=== PATIENT | female | born 1945 | race American Indian/Alaskan Native ===

== ENCOUNTER 2017-02-03 10:03 | Inpatient (IN) | payer MEDICARE, BC ==
[2017-02-03 10:03] VITALS: BMI 30.9
[2017-02-03] MEDS: Albuterol-Ipratrop 3 mg / 0.5 (3 ml) UD IH SCH ×4 (10:30→19:27)
--- NOTE | 2017-02-03 10:35 | ED PDOC ---
Arrival/HPI - General Chief Complaint: Shortness Of Breath Time Seen by Provider: 02/03/17 10:19 Historian: Patient - History of Present Illness Narrative History of Present Illness (Text): 02/03/17 10:30 A 71 year old female, whose past medical history includes asthma, brought into the emergency department by EMS for shortness of breath and wheezing. Patient states her symptoms feel similar to previous asthma exacerbations. She reports she was recently diagnosed with a sinus infection. Patient denies any fever, chills, nausea, vomiting, abdominal pain, chest pain or any other complaints. Time/Duration: Other (today) Symptom Course: Unchanged Quality: Other Context: Home Past Medical History - Provider Review Nursing Documentation Reviewed: Yes - Travel History If Yes, travel location?: [place] - Tetanus Immunization Tetanus Immunization: Unknown - Cardiac Hx Hypertension: Yes - Pulmonary Hx Asthma: Yes - Neurological Hx Neurological Disorder: No Hx Alzheimer's Disease: No HX Cerebrovascular Accident: No Hx Dementia: No Hx Dizziness: No Hx Meningitis: No Hx Parkinson's Disease: No Hx Seizures: No Hx Transient Ischemic Attacks (TIA): No - HEENT Hx HEENT Disorder: No Hx Blind: No Hx Cataracts: Yes (both eyes removed in 2009) Hx Deafness: No Hx Difficulty Chewing: No Hx Epistaxis: No Hx Glaucoma: No Hx Macular Degeneration: No - Renal Hx Renal Disorder: No Hx Dialysis: No Hx Kidney Stones: No Hx Neurogenic Bladder: No Hx Pyelonephritis: No Hx Renal Cancer: No Hx Renal Failure: No - Endocrine/Metabolic Hx Endocrine Disorders: No Hx Adrenal Cancer: No Hx Diabetes Insipidus: No Hx Diabetes Mellitus Type 1: No Hx Diabetes Mellitus Type 2: No Hx Hyperthyroidism: No Hx Hypothyroidism: No Hx Systemic Lupus Erythematosus: No - Hematological/Oncological Hx Blood Disorders: No Hx AIDS: No Hx Anemia: No Hx Cancer: No Hx Chemotherapy: No Hx Cirrhosis: No Hx Hemophilia: No Hx Hepatitis A: No Hx Hepatitis B: No Hx Hepatitis C: No Hx Metastasis: No Hx Shingles: No Hx Sickle Cell Disease: No Hx Unexplained Bleeding: No - Integumentary Hx Dermatological Disorder: No Hx Basal Cell Carcinoma: No Hx Eczema: No Hx Melanoma: No Hx Psoriasis: No Hx Squamous Cell Carcinoma: No - Musculoskeletal/Rheumatological Hx Musculoskeletal Disorders: No Hx Arthritis: Yes (back) Hx Back Pain: Yes (arthritic pain lower back) Hx Degenerative Joint Disease: Yes Hx Falls: No Hx Fractures: No Hx Gout: No Hx Herniated Disk: No Hx Myasthenia Gravis: No Hx Osteoarthritis: No Hx Osteomyelitis: No Hx Osteoporosis: No Hx Rhabdomyolysis: No Hx Spinal Stenosis: No Hx Unsteady Gait: No - Gastrointestinal Hx Gastrointestinal Disorders: No Hx Colostomy: No Hx Crohn's Disease: No Hx Diverticulitis: No Hx Gall Bladder Disease: No Hx Gastroesophageal Reflux: No Hx Gastrointestinal Ulcer: No Hx Ileostomy: No Hx Liver Failure: No Hx Pancreatitis: No HX Swallowing Problems: No - Genitourinary/Gynecological Hx Genitourinary Disorders: No Hx Hematuria: No Hx Incontinence: No Hx Prostate Problems: No Hx Sexually Transmitted Diseases: No Hx Urinary Tract Infection: No - Psychiatric Hx Depression: No Hx Emotional Abuse: No Hx Physical Abuse: No Hx Substance Use: No - Surgical History Hx Hysterectomy: Yes (2004) Other/Comment: sinsuses, bilat cataract - Anesthesia Hx Anesthesia: Yes Hx Anesthesia Reactions: No Hx Malignant Hyperthermia: No - Suicidal Assessment Feels Threatened In Home Enviroment: No Family/Social History - Physician Review Nursing Documentation Reviewed: Yes Family/Social History: No Known Family HX Smoking Status: Former Smoker Hx Alcohol Use: Yes Hx Substance Use: No Hx Substance Use Treatment: No Allergies/Home Meds Allergies/Adverse Reactions: Allergies Sulfa (Sulfonamide Antibiotics) Allergy (Verified 02/03/17 10:14) URTICARIA Home Medications: Home Meds Medication Instructions Recorded Confirmed Albuterol/Ipratropium [Duoneb 3 1 vial NEB Q6 03/31/13 05/02/15 mg/0.5 mg/3 ml] Amlodipine Besylate [Norvasc] 5 mg PO DAILY 03/31/13 05/02/15 Tiotropium [Spiriva] 1 vial NEB DAILY 03/31/13 05/02/15 Mometasone/Formoterol [Dulera] 1 ru IH BID 08/15/14 05/02/15 Physical Exam - Physical Exam Narrative Physical Exam (Text): - Review of Systems Constitutional: Normal. absent: Fatigue, Weight Change, Fevers Eyes: Normal ENT: denies sore throat, denies tristhmus Respiratory: (+) Shortness of breath, Wheezing absent: Cough, Sputum Cardiovascular: absent: Chest Pain, Palpitations, Syncope Gastrointestinal: Normal. absent: Abdominal Pain, Diarrhea, Nausea, Vomiting Genitourinary: Normal. absent: Dysuria, Frequency, Hematuria Musculoskeletal: Normal. absent: Arthralgias, Back Pain, Neck Pain Skin: no rashes, no erythema Neurological: absent: Focal Weakness Endocrine: Normal Hemo/Lymphatic: Normal Psychiatric: No suicidal or homicidal ideations Physical exam Patient appears age appropriate in no distress, speaking full sentences without difficulty - Systems Exam Head: Present: Atraumatic, Normocephalic Pupils: Present: PERRL Extroacular Muscles: Present: EOMI Conjunctiva: Present: Normal Mouth: Present: Moist Mucous Membranes Neck: Present: Normal Range of Motion. No: MIDLINE TENDERNESS, Paraspinal Tenderness Respiratory/Chest: Present: Good Air Exchange, Expiratory wheezing. No: Respiratory Distress, Accessory Muscle Use, Tachypneic Cardiovascular: Present: Regular Rate and Rhythm, Normal S1, S2, Peripheal Pulses Present. No: Murmurs Abdomen: Present: Normal Bowel Sounds. No: Tenderness, Distention, Peritoneal Signs, Rebound, Guarding Back: Present: Normal Inspection. No: Midline Tenderness, Paraspinal Tenderness Upper Extremity: Present: Normal Inspection. No: Cyanosis, Edema Lower Extremity: Present: Normal Inspection. No: Edema Neurological: Present: GCS=15, Speech Normal, cranial nerves II through XII fully intact with no cerebellar abnormality, neurosensory fully intact. No focal neurological deficits. Skin: Present: Warm, Dry, Normal Color. No: Rashes Lymphatic: Present: OX3, NI, NC Psychiatric: Present: Alert, Oriented x 3, Normal Insight, Normal Concentration Vital Signs Reviewed: Yes Vital Signs Temp Pulse Resp BP Pulse Ox 02/03/17 14:36 110 H 18 149/71 98 02/03/17 12:34 117 H 18 156/74 H 97 02/03/17 10:20 22 100 02/03/17 10:14 98.0 F 114 H 22 180/80 H 100 02/03/17 10:12 98.0 F 114 H 22 180/80 H 100 Temperature: Afebrile Blood Pressure: Hypertensive Pulse: Tachycardic Respiratory Rate: Normal Appearance: Positive for: Well-Appearing, Non-Toxic, Comfortable Pain Distress: None Mental Status: Positive for: Alert and Oriented X 3 Medical Decision Making ED Course and Treatment: 02/03/17 10:30 Impression: A 71 year old female with shortness of breath and wheezing. On physical exam, expiratory wheezing. Differential Diagnosis included but are not limited to: Asthma exacerbation vs. PNA Plan: -- Chest xray -- EKG -- Labs -- Duoneb and Solumedrol -- Blood culture -- Reassess and disposition Progress Notes: EKG shows sinus tachycardia at [address]-segment elevations, normal intervals. Interpreted by me. Report Date : 02/03/2017 11:04:42 Procedure: Chest xray Dictator : Dimitry Tellez MD IMPRESSION: No active disease. 02/03/17 14:22 On re-evaluation, patients lungs are clear to auscultation bilaterally. Patient states she feels better and is in no acute distress. 02/03/17 17:00 D-dimer positive, CT angiogram ordered Complaint Inspector : Aakash Lloyd MD PROCEDURE: CT Chest with contrast (Pulmonary Angiogram) IMPRESSION: Limited examination. Cannot exclude segmental/subsegmental pulmonary embolus on the basis of this examination. No large central embolus identified. No pulmonary infiltrate or pleural effusion. Additional findings as above. Patient continues to be tachycardic at rest She denies any chest discomfort, pleuritic chest discomfort, shortness of breath , dyspnea exertion. Will administer Lovenox and admit for further workup for possible PE and resting tachycardia 02/03/17 17:[address] Oconnor 02/03/17 17:[address] Oconnor in detail, plan to admit to remote/tele for further w/u pt aware of and agrees with plan - Lab Interpretations Lab Results: 02/03/17 10:38 02/03/17 10:38 Lab Results 02/03/17 11:00: PT 10.5, INR 0.97, APTT 23.9 02/03/17 10:38: Free T4 0.94, TSH 3rd Generation 1.43 02/03/17 10:38: D-Dimer, Quantitative 1.00 H 02/03/17 10:38: Sodium 143, Potassium 3.6, Chloride 103, Carbon Dioxide 28, Anion Gap 16, BUN 15, Creatinine 0.7, Est GFR ( Amer) > 60, Est GFR (Non- Af Amer) > 60, Random Glucose 153 H, Calcium 9.5, Total Bilirubin 0.4, AST 31, ALT 34, Alkaline Phosphatase 115, Lactate Dehydrogenase 521, Total Creatine Kinase 116, Troponin I < 0.01, NT-Pro-B Natriuret Pep 71.6, Total Protein 8.4 H , Albumin 4.7, Globulin 3.6, Albumin/Globulin Ratio 1.3 02/03/17 10:38: WBC 10.1 D, RBC 5.96, Hgb 13.0, Hct 40.5, MCV 68.0 L, MCH 21.8 L, MCHC 32.1, RDW 16.4 H, Plt Count 310, MPV 9.6, Gran % 70.7 H, Lymph % (Auto) 24.4, Dundy % (Auto) 4.8, Eos % (Auto) 0.0 L, Baso % (Auto) 0.1, Gran # 7.15 H, Lymph # 2.5, Dundy # 0.5, Eos # 0.0, Baso # 0.01 I have reviewed the lab results: Yes - RAD Interpretation Radiology Orders: 02/03/17 10:20 CHEST PORTABLE [RAD] Stat 02/03/17 15:34 ANGIO CHEST PE PROTOCOL [CT] Stat - Medication Orders Current Medication Orders: Discontinued Medications Albuterol/Ipratropium (Duoneb 3 Mg/0.5 Mg (3 Ml) Ud) 3 ml IH Q15M CATHY Stop: 02/03/17 11:01 Last Admin: 02/03/17 11:17 Dose: 3 ml Enoxaparin Sodium (Lovenox) 80 mg SC STAT STA PRN Reason: Protocol Stop: 02/03/17 17:29 Famotidine (Pepcid 20mg/50ml Premix) 20 mg in 50 mls @ 100 mls/hr IV STAT STA Stop: 02/03/17 11:10 Last Admin: 02/03/17 11:17 Dose: 100 mls/hr eMAR Start Stop Document 02/03/17 11:17 MR (Rec: 02/03/17 11:17 MR [id number]) Intravenous Solution Start Date 02/03/17 Start Time 11:17 End Date 02/03/17 End time 11:47 Total Infusion Time 30 Methylprednisolone (Solu-Medrol) 125 mg IVP STAT STA Stop: 02/03/17 10:20 Last Admin: 02/03/17 10:41 Dose: 125 mg IVP Administration Document 02/03/17 10:41 MR (Rec: 02/03/17 10:41 MR [id number]) Charges for Administration # of IVP Administrations 1 Ondansetron HCl (Zofran Inj) 4 mg IVP STAT STA Stop: 02/03/17 10:42 Last Admin: 02/03/17 10:46 Dose: 4 mg IVP Administration Document 02/03/17 10:46 MR (Rec: 02/03/17 10:46 MR [id number]) Charges for Administration # of IVP Administrations 1 - Scribe Statement The provider has reviewed the documentation as recorded by the Paulie Flores Provider Scribe Attestation: All medical record entries made by the Scribe were at my direction and personally dictated by me. I have reviewed the chart and agree that the record accurately reflects my personal performance of the history, physical exam, medical decision making, and the department course for this patient. I have also personally directed, reviewed, and agree with the discharge instructions and disposition. Disposition/Present on Arrival - Present on Arrival Any Indicators Present on Arrival: No History of DVT/PE: No History of Uncontrolled Diabetes: No Urinary Catheter: No History of Decub. Ulcer: No History Surgical Site Infection Following: None - Disposition Have Diagnosis and Disposition been Completed?: Yes Diagnosis: Pulmonary emboli, Asthma exacerbation Disposition: HOSPITALIZED Disposition Time: 17:47 Patient Plan: Admission Condition: FAIR Referrals: Ana M Almendarez MD [Primary Care Provider] - Follow up with primary Forms: [employer] (Serbian)
[2017-02-03] MEDS ORDERED: Famotidine 20mg/50ml 20 MG/50 ML BAG IV STA (10:41)
[2017-02-03 10:43] LABS: BASO # 0.01 K/mm3 (0.0-2.0); BASO % 0.1 % (0.0-3.0); GRAN # 7.15 (1.4-6.5); GRAN % 70.7 % (50.0-68.0); HEMATOCRIT 40.5 % (36.0-48.0); LYMPH # 2.5 (1.2-3.4); LYMPH % 24.4 % (22.0-35.0); MEAN CORPUSCULAR HEMOGLOBIN 21.8 pg (25.0-35.0); MEAN CORPUSCULAR HGB CONC 32.1 g/dl (31.0-37.0); MEAN PLATELET VOLUME 9.6 fl (7.0-11.0); MONO # 0.5 (0.1-0.6); MONO % 4.8 % (1.0-6.0); RED CELL DISTRIBUTION WIDTH 16.4 % (11.5-14.5); WHITE BLOOD COUNT 10.1 10^3/ul (4.5-11.0)
[2017-02-03 10:55] LABS: ALB/GLOB RATIO 1.3 (1.1-1.8); ALKALINE PHOSPHATASE 115 U/L (38-126); ALT/SGPT 34 U/L (7-56); AST/SGOT 31 U/L (14-36); BILIRUBIN,TOTAL 0.4 mg/dL (0.2-1.3); BLOOD UREA NITROGEN 15 mg/dL (7-21); CALCIUM 9.5 mg/dL (8.4-10.5); CARBON DIOXIDE 28 mmol/L (21-33); CHLORIDE 103 mmol/L (98-107); GFR AFRICAN-AMERICAN > 60; GLUCOSE,RANDOM 153 mg/dL (70-110); POTASSIUM 3.6 mmol/L (3.6-5.0); SODIUM 143 mmol/L (132-148); TOTAL PROTEIN 8.4 g/dL (5.8-8.3)
[2017-02-03 11:06] LABS: TROPONIN I < 0.01 ng/mL
--- NOTE | 2017-02-03 11:06 | RAD ---
HISTORY: cough COMPARISON: 05/02/2015 FINDINGS: LUNGS: No active pulmonary disease. PLEURA: No significant pleural effusion identified, no pneumothorax apparent. CARDIOVASCULAR: Normal. OSSEOUS STRUCTURES: No significant abnormalities. VISUALIZED UPPER ABDOMEN: Normal. OTHER FINDINGS: None. IMPRESSION: No active disease.
[2017-02-03 11:15] LABS: INR 0.97 (0.93-1.08); PARTIAL THROMBOPLASTIN TIME 23.9 Seconds (23.7-30.8)
[2017-02-03 15:29] LABS: FREE T4 0.94 ng/dL (0.78-2.19)
[2017-02-03 15:44] LABS: THYROID STIMULATING HORMONE 1.43 mIU/mL (0.46-4.68)
[2017-02-03] MEDS ORDERED: Iohexol 350 MG/100 ML VIAL ONE (15:44)
[2017-02-03] MEDS ORDERED: Enoxaparin 80 mg Syringe SC STA (17:28)
[2017-02-03] MEDS ORDERED: Albuterol-Ipratrop 3 mg / 0.5 (3 ml) UD IH PRN (17:47)
--- NOTE | 2017-02-03 20:02 | CT ---
PROCEDURE: CT Chest with contrast (Pulmonary Angiogram) HISTORY: r/o PE COMPARISON: CT chest 09/03/2013 TECHNIQUE: Axial computed tomography images were obtained of the chest in the pulmonary arterial phase of enhancement. Coronal and sagittal reformatted images were created and reviewed. Intravenous contrast dose: 100 mL Omnipaque 350 Radiation dose: Total exam DLP = 620.89 mGy-cm. This CT exam was performed using one or more of the following dose reduction techniques: Automated exposure control, adjustment of the mA and/or kV according to patient size, and/or use of iterative reconstruction technique. FINDINGS: PULMONARY ARTERIES: Examination limited due to inadequate timing of the scan relative to the contrast bolus as well as extensive respiratory motion artifact. No large central pulmonary embolus is identified. Embolism can't be excluded to the level of lobar vessels. AORTA: No acute findings. No thoracic aortic aneurysm. LUNGS: Subsegmental atelectasis in the lateral segment of the right middle lobe. No pulmonary infiltrate. PLEURAL SPACES: Unremarkable. No effusion or pneuomothorax. HEART: Unremarkable. No cardiomegaly. No significant pericardial effusion. LYMPH NODES: Shotty subcentimeter mediastinal lymph nodes. No significant enlarged lymph nodes are identified. BONES, CHEST WALL: Incidental hemangioma of the T9 vertebral body. No fracture. OTHER FINDINGS: UnremarkableImages through the upper abdomen show several rounded fluid density masses in the visualized portion of the liver, the largest in the anterior right lobe measures 4.4 cm. Likely cyst. Recommend correlation with ultrasound on a nonemergent basis. . IMPRESSION: Limited examination. Cannot exclude segmental/subsegmental pulmonary embolus on the basis of this examination. No large central embolus identified. No pulmonary infiltrate or pleural effusion. Additional findings as above.
[2017-02-03] MEDS ORDERED: Pneumococcal 23-Valent Vaccine IM ONE (21:58)
--- NOTE | 2017-02-03 22:41 | CARD ---
APPROVED REPORT EKG Measurement Heart [id number] <Conclusion> Sinus tachycardia Nonspecific ST abnormality Abnormal ECG
[2017-02-04] MEDS: Albuterol-Ipratrop 3 mg / 0.5 (3 ml) UD IH SCH ×3 (08:10→20:29)
[2017-02-04] MEDS: Budesonide 0.5 mg/2 ml Inhal Susp UD IH SCH ×2 (08:11→20:29)
[2017-02-04] MEDS: MethylPREDNISolone 40 mg Vial IVP SCH ×2 (09:37→22:26)
[2017-02-04] MEDS: Fluticasone Nasal 50 mcg/Spray NS SCH (10:15)
--- NOTE | 2017-02-04 11:08 | CON ---
PULMONARY CONSULTATION DATE: 02/04/2017 REFERRING PHYSICIAN: Quan Oconnor MD REASON CONSULTATION: Asthma. HISTORY OF PRESENT ILLNESS: The patient is a 71-year-old female, with past medical history significant for asthma, recurrent bronchitis, and hypertension, who presents to [facility] with a 1-week history of worsening shortness of breath at rest, dyspnea on exertion, cough, and minimal sputum production. The patient denies chest pain, coughing up of blood, or chest pain - made worse with deep respirations. There is no history of temperatures, chills or infectious exposure. There is no history of night sweats, weight loss or appetite change prior to the above events. No history of calf pains. No history of syncope or diaphoresis. No history of recent travel or trauma. REVIEW OF SYSTEMS: The patient does complain of a runny nose and postnasal drip also over the past week. No nausea, vomiting, or diarrhea. No acute urinary symptoms. No new neurologic or musculoskeletal complaints. Rest of the review of systems negative. ALLERGIES: Sulfanomide ANTIBIOTICS. SOCIAL HISTORY: Positive for tobacco. Negative for alcohol. FAMILY HISTORY: No inheritable diseases. HOME MEDICATIONS: Include Norvasc, Spiriva, Xolair, and Dulera. PHYSICAL EXAMINATION: GENERAL: The patient appears comfortable this morning. She is not short of breath at rest. She is not using accessory muscles for breathing. VITAL SIGNS: Temperature is 98.0, pulse this morning is approximately 90, respirations 17, and blood pressure 144/76. Oxygen saturation on nasal canula is 100%. HEENT: Normocephalic and atraumatic. NECK: No JVD. CARDIOVASCULAR: Systolic ejection murmur at the lower left sternal border. No S3 or gallop. LUNGS: Decreased breath sounds at the bases. Minimal rhonchi. Minimal wheezing. EXTREMITIES: Positive for mild edema. No cyanosis. No clubbing. Calves are nontender to palpation. GASTROINTESTINAL: Abdomen is soft, nontender, and nondistended. Bowel sounds are positive. SKIN: No acute rash. NEUROLOGIC: Limited at the present time. PERTINENT LABORATORY DATA: CAT scan of the chest was done as an angiogram protocol. There is no pulmonary embolism seen. There is very minimal subsegmental atelectasis vs. scar noted in the lateral segment of the right middle lobe. There are no pulmonary infiltrates, masses, or nodules. There is no significant lymphadenopathy. CBC: White count 10.1, hemoglobin 13.0, hematocrit 40.5, and platelets of 310. Complete metabolic profile: Glucose 153 and total protein 8.4. Rest of the metabolic profile is within normal limits. IMPRESSION: 1. Acute bronchitis. 2. Asthma. 3. Acute rhinitis. 4. Hypertension. PLAN: The patient presents to [facility] with a 1-week history of increasing pulmonary symptoms. In addition, the patient also complains of a runny nose with postnasal drip also over the past week. I did review the CAT scan of the chest - done as an angiogram protocol. There is no pulmonary embolism seen. There are no acute or significant abnormalities seen. On physical exam, the patient is in mild bronchospasm. There is no significant alveolar-arterial gradient. Oxygen saturation on nasal cannula is 100%. I will continue the current nebulizer treatments. I will add low-dose intravenous steroids and inhaled steroids this morning. Lastly, given the upper respiratory complaints over the past week, I will also add nasal steroids this morning. There are no temperatures noted. There is no leukocytosis. The patient does feel better this morning, and is clinically improved. Additional pulmonary intervention will be based on the clinical status of the patient. I will discuss the above with Dr. Oconnor. Thank you very much for this pulmonary consultation. Lion Patel MD MTDD
--- NOTE | 2017-02-05 02:55 | HP ---
HISTORY OF PRESENT ILLNESS: This is a 71-year-old female who came into the hospital with complaints of shortness of breath. She says that she was having more difficulty breathing. She was wheezing. She states that she has had previous asthma exacerbations, so she came in for further evaluation. She had recently been diagnosed with sinus infection. She denies any nausea or vomiting. No dysuria or frequency, She states that breathing medications did help her. She has no headaches. No abdominal pain. No back pain. No dysuria or frequency. No nocturia. REVIEW OF SYSTEMS: All other review of symptoms are within normal limits except what was mentioned. ALLERGIES: SULFA. HOME MEDICATIONS: Amlodipine, tiotropium, and Dulera. SOCIAL HISTORY: She does have a history of smoking. She denies alcohol or drugs. FAMILY HISTORY: Noncontributory. PHYSICAL EXAMINATION: VITAL SIGNS: Temperature is 98.0, pulse of 114, blood pressure 180/80, respirations 22, and O2 saturation is 100%. Height is 5 feet 4 inches. Weight is 180 pounds. BMI is 30.9. GENERAL: The patient lying in bed, uncomfortable, and in no acute distress. HEENT: Atraumatic and normocephalic. Anicteric sclerae. Moist mucosa. Thatcher conjunctivae. No oral lesions. NECK: No JVD, anterior and posterior adenopathy, thyromegaly, or bruits. CARDIOVASCULAR: S1 and S2 regular. No murmur, rubs, or gallop. LUNGS: Good bilateral air entry and bilateral mild wheezing, no rales or rhonchi. ABDOMEN: Bowel sounds are positive. Soft, nontender and nondistended. No hepatosplenomegaly. No rebound and no guarding. EXTREMITIES: No cyanosis, clubbing, or edema. NEUROLOGIC: No facial asymmetry. Tongue is midline. No uvula deviation. Power is 5/5 upper extremity and lower extremity. Sensation intact in upper extremity and lower extremity. PSYCHIATRIC: She is awake, alert and oriented x3. No anxiety or depression. She has normal affect. GENITOURINARY: No CVA tenderness. VASCULAR: 2+ pulses in the carotid pulses and pedal pulses. SKIN: No erythema or nodules SPINE: Shows normal curvature. LABORATORY DATA: White count of 10.1 and hemoglobin of 13. The patient's d-dimer is 1. She has a creatinine of 0.7. AST and ALT is 31 and 34. Albumin is 4.7. TSH is 1.43. DIAGNOSTIC DATA: Her CT scan of the chest done that was reviewed is limited exam, there was no large central emboli that was identified. An EKG done shows sinus tachycardia of 120, nonspecific ST changes. Chest x ray shows no infiltrates. ASSESSMENT: 1. Acute asthma exacerbation. 2. Acute rhinitis. 3. Hypertension. PLAN: The patient is going to be admitted to the hospital. She has been given nebulizer treatments. She is going to continue with Flonase. She is on amlodipine for her hypertension. Her tachycardia has improved as her breathing has improved. She is on Solu-Medrol. She was given Zofran in the ER. She is on a heart-healthy diet. She clinically does not seem to have PE. Her tachycardia is improving with nebulizer treatments. She has no recent long trips. She is not on and oral contraceptives. We will continue to follow her closely. I appreciate Cardiology input. Quan Oconnor MD
[2017-02-05 08:27] VITALS: BP 154/87; PULSE 74; RESP 18; TEMP 97.8; O2SAT 99
[2017-02-05] MEDS: Fluticasone Nasal 50 mcg/Spray NS SCH (09:09)
[2017-02-05] MEDS: Albuterol-Ipratrop 3 mg / 0.5 (3 ml) UD IH SCH (09:38)
[2017-02-05] MEDS: Budesonide 0.5 mg/2 ml Inhal Susp UD IH SCH (09:39)
--- NOTE | 2017-02-05 09:42 | PN ---
DATE: 02/05/2017 SUBJECTIVE: The patient appears very comfortable this morning. She is not short of breath at rest. OBJECTIVE: VITAL SIGNS: Temperature is 98.0, pulse 88, respirations 18, blood pressure 124/68. Oxygen saturation on room air is 97%. HEENT: Normocephalic, atraumatic. NECK: No JVD. CARDIOVASCULAR: Systolic ejection murmur at the lower left sternal border. No S3 gallop. LUNGS: Improved breath sounds at the bases. Less rhonchi. Less wheezing. EXTREMITIES: Positive for mild edema. No cyanosis, no clubbing. Calves are nontender to palpation. GASTROINTESTINAL: Abdomen is soft, nontender and nondistended. Bowel sounds are positive. SKIN: No acute rash. NEUROLOGIC: Exam limited to present time. IMPRESSION: 1. Acute bronchitis. 2. Asthma. 3. Acute rhinitis. 4. Hypertension. PLAN: The patient appears much more comfortable this morning. She is not short of breath at rest. Her cough is much less. She states to feeling much better overall. On physical exam, her bronchospasm is significantly less. In addition, the oxygen saturation on room air is 97% to 98%. I will continue the current nebulizer treatments and decrease the intravenous steroids this morning. The patient remains on nasal steroids,as well as inhaled steroids. I did discuss the case with the night nurse at length. The night nurse stated that the patient is doing very well overall. I did instruct the patient and nurse, that the patient's activity should be increased today. Clinical status of the patient is significantly improved. I will discuss the above with Dr. Oconnor. Lion Patel MD GERI
[2017-02-05] MEDS ORDERED: MethylPREDNISolone 40 mg Vial IVP SCH (10:00)
--- NOTE | 2017-02-06 08:53 | DS ---
SUBJECTIVE: The patient has no complaints of any chest pain or shortness of breath. No headaches or dizziness. She says she is feeling better. Her breathing is better. She is able to ambulate. PHYSICAL EXAMINATION: VITAL SIGNS: Temperature is 98, pulse of 88, blood pressure is 124/68, and respirations are 20. GENERAL: The patient is lying in bed, flat, comfortable. HEENT: No oral lesion. Anicteric sclerae. Moist mucosa. NECK: No JVD, adenopathy, or thyromegaly. CARDIOVASCULAR: S1 and S2, regular. No murmurs, rubs, or gallops. LUNGS: Clear to auscultation bilaterally. No wheeze, rales, or rhonchi. ABDOMEN: Bowel sounds are positive, soft, nontender and nondistended. EXTREMITIES: No cyanosis, clubbing or edema. LABORATORY DATA: White count of 10.1 and hemoglobin . ASSESSMENT: 1. Acute chronic obstructive pulmonary disease exacerbation. 2. Hypertension. 3. Acute rhinitis. PLAN: The patient is on Flonase for her rhinitis. She says she is breathing better. She is on nebulizer treatment for her breathing. The patient is on steroids, it has been tapered. She is going to be discharged home to follow up as an outpatient with her primary care doctor Dr. Negron. She has no headaches or dizziness. No nausea. Condition is stable. Activities; increase as tolerated. Quan Oconnor MD
== END 2017-02-05 12:54 | disposition home or self-care (01) | DRG 192 ==
LOC: ED 10:03 → ERH 17:47 → 3RNO 18:49
PROVIDERS: ADMIT Internal Medicine Nephrology; ATTEND Internal Medicine Nephrology
DX: J44.1 Chronic obstructive pulmonary disease with (acute) exacerbation (principal); J44.0 Chronic obstructive pulmonary disease with (acute) lower respiratory infection; J20.9 Acute bronchitis, unspecified; I10 Essential (primary) hypertension; Z87.891 Personal history of nicotine dependence

== ENCOUNTER 2017-09-15 15:37 | Inpatient (IN) | payer MEDICARE, BC ==
[2017-09-15] MEDS ORDERED: Albuterol 0.083% Inhal Sol (2.5 mg/3 mL) UD INH STA (15:44)
[2017-09-15] MEDS ORDERED: cefTRIAXone 1 gm 1 GM/100 ML BAG IVPB STA (15:50)
[2017-09-15] MEDS ORDERED: Azithromycin 500MG/NS 250ml 500 MG/250 ML BAG IVPB STA (15:50)
[2017-09-15] MEDS ORDERED: Albuterol-Ipratrop 3 mg / 0.5 (3 ml) UD IH PRN (16:16)
--- NOTE | 2017-09-15 16:55 | RAD ---
HISTORY: Pneumonia COMPARISON: 06/16/2017 FINDINGS: LUNGS: No active pulmonary disease. PLEURA: No significant pleural effusion identified, no pneumothorax apparent. CARDIOVASCULAR: Cardiomegaly. No evidence of acute, significant cardiovascular disease. OSSEOUS STRUCTURES: No significant abnormalities. VISUALIZED UPPER ABDOMEN: Normal. OTHER FINDINGS: None. IMPRESSION: No active disease. No significant interval change compared to the prior examination(s).
--- NOTE | 2017-09-15 17:10 | ED PDOC ---
Arrival/HPI - General Chief Complaint: Shortness Of Breath Time Seen by Provider: 09/15/17 15:42 Historian: Patient - History of Present Illness Narrative History of Present Illness (Text): 09/15/17 17:11 A 72 year old female, whose past medical history includes asthma, not on Prednisone, presents to the emergency department complaining of cough, cold and congestion for the past 3-4 days. Patient reports to taking different inhalers. Patient relates these symptoms to be seasonal allergies. Reports she went to PMD office this morning, who recommended patient to be admitted to the emergency department for Pneumonia. PMD spoke with Dr. Oconnor, who will do the admission. Patient reports to going home and bringing herself to the emergency department. Patient denies any other complaints at this time. Time/Duration: < week Symptom Onset: Sudden Symptom Course: Unchanged Activities at Onset: Rest Context: Home Past Medical History - Provider Review Nursing Documentation Reviewed: Yes - Infectious Disease Hx of Infectious Diseases: None - Tetanus Immunization Tetanus Immunization: Unknown - Cardiac Hx Hypertension: Yes - Pulmonary Hx Respiratory Disorders: Yes (home nebulizer machine) Hx Asthma: Yes Hx Bronchitis: Yes Hx Chronic Obstructive Pulmonary Disease (COPD): Yes Hx Pneumonia: Yes Other/Comment: recent sinus infection - Neurological Hx Neurological Disorder: No - HEENT Hx HEENT Disorder: No Hx Cataracts: Yes (b/l cat sx 2009) - Renal Hx Renal Disorder: No - Endocrine/Metabolic Hx Endocrine Disorders: No - Hematological/Oncological Hx Blood Disorders: No - Integumentary Hx Dermatological Disorder: No - Musculoskeletal/Rheumatological Hx Musculoskeletal Disorders: No Hx Arthritis: Yes (back) Hx Back Pain: Yes (arthritic pain lower back) Hx Degenerative Joint Disease: Yes - Gastrointestinal Hx Gastrointestinal Disorders: No - Genitourinary/Gynecological Hx Genitourinary Disorders: No - Psychiatric Hx Psychophysiologic Disorder: No Hx Substance Use: No - Surgical History Hx Hysterectomy: Yes (2004) Other/Comment: sinus sx, bilat cataract, myomectomy x2 fibroid came back a third time pt decided to have hysterectomy in 2004, r knee arthoscopic and torn miniscus sx 08/2015 - Anesthesia Hx Anesthesia: Yes Hx Anesthesia Reactions: No Hx Malignant Hyperthermia: No - Suicidal Assessment Feels Threatened In Home Enviroment: No Family/Social History - Physician Review Nursing Documentation Reviewed: Yes Family/Social History: No Known Family HX Smoking Status: Former Smoker Hx Alcohol Use: No Hx Substance Use: No Hx Substance Use Treatment: No Allergies/Home Meds Allergies/Adverse Reactions: Allergies Sulfa (Sulfonamide Antibiotics) Allergy (Verified 09/15/17 15:47) URTICARIA Home Medications: Home Meds Medication Instructions Recorded Confirmed Tiotropium [Spiriva] 1 vial NEB DAILY 03/31/13 09/15/17 Mometasone/Formoterol [Dulera 200 1 ru IH BID 08/15/14 09/15/17 Mcg/5 Mcg Inhaler] amLODIPine [Norvasc] 5 mg PO DAILY 02/03/17 09/15/17 Review of Systems - Physician Review All systems were reviewed & negative as marked: Yes - Review of Systems ENT: Sinus Congestion Respiratory: Cough Physical Exam Vital Signs Reviewed: Yes Vital Signs Temp Pulse Resp BP Pulse Ox 09/15/17 17:00 99.2 F 110 H 19 140/65 99 09/15/17 15:46 100.2 F H 111 H 18 144/68 96 Temperature: Febrile Blood Pressure: Normal Pulse: Tachycardic Respiratory Rate: Normal Appearance: Positive for: Non-Toxic, Comfortable, Ill-Appearing Pain Distress: None Mental Status: Positive for: Alert and Oriented X 3 - Systems Exam Head: Present: Atraumatic, Normocephalic Pupils: Present: PERRL Extroacular Muscles: Present: EOMI Conjunctiva: Present: Normal Mouth: Present: Moist Mucous Membranes Neck: Present: Normal Range of Motion Respiratory/Chest: No: Clear to Auscultation, Respiratory Distress, Accessory Muscle Use Cardiovascular: Present: Regular Rate and Rhythm, Normal S1, S2. No: Murmurs Abdomen: No: Tenderness, Distention, Peritoneal Signs Back: Present: Normal Inspection Upper Extremity: Present: Normal Inspection. No: Cyanosis, Edema Lower Extremity: Present: Normal Inspection. No: Edema Neurological: Present: GCS=15, CN II-XII Intact, Speech Normal Skin: Present: Warm, Dry, Normal Color. No: Rashes Psychiatric: Present: Alert, Oriented x 3, Normal Insight, Normal Concentration Medical Decision Making ED Course and Treatment: 09/15/17 17:08 Impression: A 72 year old female with cough, cold and congestion. Differential Diagnosis included but are not limited to: flu, PNA. Plan: -- labs -- Chest X-ray -- Albuterol, Solumedrol, Rocephin, Zithromax -- Urinalysis -- Reassess and disposition Prior Visits: Notes and results from previous visits were reviewed. Patient was last seen in the emergency department on 02/03/17 for evaluation of shortness of breath and wheezing. Progress Notes: EKG: Ordered, reviewed, and independently interpreted the EKG. Rate : 112 BPM Rhythm : sinus tachycardia Interpretation : normal EKG 09/15/17 16:28 Chest X-ray Creator : Ezequiel Gonsalez MD FINDINGS: LUNGS: No active pulmonary disease. PLEURA: No significant pleural effusion identified, no pneumothorax apparent. CARDIOVASCULAR: Cardiomegaly. No evidence of acute, significant cardiovascular disease. OSSEOUS STRUCTURES: No significant abnormalities. VISUALIZED UPPER ABDOMEN: Normal. IMPRESSION: No active disease. No significant interval change compared to the prior examination(s). Chest X-ray shows left lower lobe pneumonia, as read by me. Spoke with Dr. Oconnor, who agrees and accepts patient to be admitted to [facility]. - Lab Interpretations Lab Results: 09/15/17 15:45 09/15/17 15:45 Lab Results 09/15/17 15:45: Influenza Typ A,B (EIA) Negative for flu a/b 09/15/17 15:45: Sodium 142, Chloride 103, Potassium 4.3, Carbon Dioxide 26, Anion Gap 17, BUN 8, Creatinine 0.7, Est GFR ( Amer) > 60, Est GFR (Non- Af Amer) > 60, Random Glucose 107, Calcium 9.7, Total Bilirubin 0.4, AST 30, ALT 36, Alkaline Phosphatase 94, Lactate Dehydrogenase 528, Total Creatine Kinase 100, Troponin I < 0.01, Total Protein 7.9, Albumin 4.5, Globulin 3.4, Albumin/Globulin Ratio 1.3 09/15/17 15:45: pO2 77 H, VBG pH 7.38, VBG pCO2 46.0, VBG HCO3 27.2, VBG Total CO2 28.6 H, VBG O2 Sat (Calc) 98.0 H, VBG Base Excess 1.5, VBG Potassium 4.4, Sodium 136.0, Chloride 103.0, Glucose 112 H, Lactate 1.6, FiO2 21.0, Venous Blood Potassium 4.4 05/18/18 15:45: PT 12.5, INR 1.09 H 09/15/17 15:45: WBC 10.1, RBC 5.29, Hgb 11.5 L, Hct 35.3 L, MCV 66.7 L, MCH 21.7 L, MCHC 32.6, RDW 16.4 H, Plt Count 292, MPV 10.5, Gran % 64.7, Lymph % ( Auto) 18.0 L, [place] % (Auto) 8.8 H, Eos % (Auto) 8.3 H, Baso % (Auto) 0.2, Gran # 6.52 H, Lymph # (Auto) 1.8, Vigo # (Auto) 0.9 H, Eos # (Auto) 0.8 H, Baso # ( Auto) 0.02 I have reviewed the lab results: Yes - RAD Interpretation Radiology Orders: 09/15/17 15:44 CHEST PORTABLE [RAD] Stat - EKG Interpretation Interpreted by ED Physician: Yes Type: 12 lead EKG - Medication Orders Current Medication Orders: Albuterol/Ipratropium (Duoneb 3 Mg/0.5 Mg (3 Ml) Ud) 3 ml IH [id number] [facility] Last Admin: 09/20/17 13:17 Dose: 3 ml Albuterol/Ipratropium (Duoneb 3 Mg/0.5 Mg (3 Ml) Ud) 3 ml IH Q2H PRN PRN Reason: Shortness of Breath Amlodipine Besylate (Norvasc) 5 mg PO DAILY [facility] Last Admin: 09/20/17 09:16 Dose: 5 mg MAR Pulse and Blood Pressure Document 09/20/17 09:16 EP (Rec: 09/20/17 09:18 EP [facility] [id number]) Pulse Pulse Rate (60-90) 100 Blood Pressure Blood Pressure (100/60-150/90) 179/88 Budesonide (Pulmicort Respules) 0.5 mg IH [id number] [facility] Last Admin: 09/20/17 07:32 Dose: 0.5 mg Cefpodoxime Proxetil (Vantin) 200 mg PO Q12 [facility] Stop: 09/21/17 21:46 Last Admin: 09/20/17 09:15 Dose: 200 mg Methylprednisolone (Solu-Medrol) 30 mg IVP Q12 [facility] Last Admin: 09/20/17 09:15 Dose: 30 mg IVP Administration Document 09/20/17 09:15 EP (Rec: 09/20/17 09:16 EP [facility] [id number]) Charges for Administration # of IVP Administrations 1 Promethazine HCl (Phenergan Syrup) 6.25 mg PO Q4H PRN PRN Reason: Cough Last Admin: 09/20/17 09:16 Dose: 6.25 mg Discontinued Medications Albuterol Sulfate (Albuterol 0.083% Inhal Barbara (2.5 Mg/3 Ml) Ud) 7.5 mg INH STAT STA Stop: 09/15/17 15:45 Last Admin: 09/15/17 17:15 Dose: 7.5 mg Albuterol/Ipratropium (Duoneb 3 Mg/0.5 Mg (3 Ml) Ud) 3 ml IH TIDRESP [facility] Last Admin: 09/17/17 19:21 Dose: 3 ml Albuterol/Ipratropium (Duoneb 3 Mg/0.5 Mg (3 Ml) Ud) 3 ml IH Q4 PRN PRN Reason: Shortness of Breath Stop: 09/16/17 04:01 Albuterol/Ipratropium (Duoneb 3 Mg/0.5 Mg (3 Ml) Ud) 3 ml IH Q4H PRN PRN Reason: Shortness of Breath Last Admin: 09/18/17 05:04 Dose: 3 ml Ceftriaxone Sodium (Rocephin 1 Gram Ivpb) 1 gm in 100 mls @ 200 mls/hr IVPB STAT STA PRN Reason: Protocol Stop: 09/15/17 16:19 Last Admin: 09/15/17 18:05 Dose: 200 mls/hr eMAR Start Stop Document 09/15/17 18:05 LA (Rec: 09/15/17 18:05 [id number]) Intravenous Solution Start Date 09/15/17 Start Time 18:05 End Date 09/15/17 End time 18:35 Total Infusion Time 30 Azithromycin (Zithromax 500mg In Ns) 500 mg in 250 mls @ 167 mls/hr IVPB STAT STA PRN Reason: Protocol Stop: 09/15/17 17:19 Last Admin: 09/15/17 18:17 Dose: 167 mls/hr eMAR Start Stop Document 09/15/17 18:17 LA (Rec: 09/15/17 18:18 LA [id number]) Intravenous Solution Start Date 09/15/17 Start Time 18:17 End Date 09/15/17 End time 19:47 Total Infusion Time 90 Ceftriaxone Sodium (Rocephin 1 Gram Ivpb) 1 gm in 100 mls @ 100 mls/hr IVPB DAILY [facility]ATHY PRN Reason: Protocol Last Admin: 09/19/17 09:26 Dose: 100 mls/hr eMAR Start Stop Document 09/19/17 09:26 EP (Rec: 09/19/17 09:27 EP [facility] [id number]) Intravenous Solution Start Date 09/19/17 Start Time 09:26 End Date 09/19/17 End time 10:26 Total Infusion Time 60 Methylprednisolone (Solu-Medrol) 125 mg IVP STAT STA Stop: 09/15/17 15:45 Last Admin: 09/15/17 17:12 Dose: 125 mg IVP Administration Document 09/15/17 17:12 LA (Rec: 09/15/17 17:12 LA [id number]) Charges for Administration # of IVP Administrations 1 Methylprednisolone (Solu-Medrol) 40 mg IVP Q12 [facility] Last Admin: 09/18/17 21:03 Dose: 40 mg IVP Administration Document 09/18/17 21:03 MB (Rec: 09/18/17 21:04 MB [facility] [id number]) Charges for Administration # of IVP Administrations 1 Pneumococcal Polyvalent Vaccine (Pneumovax 23 Vaccine) 0.5 ml IM .ONCE ONE Stop: 09/15/17 22:49 - Scribe Statement The provider has reviewed the documentation as recorded by the Paulie Hernández Provider Scribe Attestation: All medical record entries made by the Scribtaqueria were at my direction and personally dictated by me. I have reviewed the chart and agree that the record accurately reflects my personal performance of the history, physical exam, medical decision making, and the department course for this patient. I have also personally directed, reviewed, and agree with the discharge instructions and disposition. Disposition/Present on Arrival - Present on Arrival Any Indicators Present on Arrival: Yes History of DVT/PE: No History of Uncontrolled Diabetes: No Urinary Catheter: No History of Decub. Ulcer: No History Surgical Site Infection Following: None - Disposition Have Diagnosis and Disposition been Completed?: Yes Diagnosis: Bronchitis, Asthma exacerbation Disposition: HOSPITALIZED Disposition Time: 19:00 Patient Plan: Admission Patient Problems: Current Active Problems Problem Status Onset Asthma exacerbation Acute Bronchitis Acute Condition: FAIR
[2017-09-15] MEDS: Albuterol-Ipratrop 3 mg / 0.5 (3 ml) UD IH SCH (17:12)
[2017-09-15 18:03] LABS: PH,URINE 7.5 (4.7-8.0); URINE BILIRUBIN NEGATIVE (NEGATIVE); URINE BLOOD TRACE-INTACT (NEGATIVE); URINE GLUCOSE (UA) NEGATIVE (NEGATIVE); URINE LEUKOCYTE ESTERASE NEGATIVE Leu/uL (NEGATIVE); URINE PROTEIN NEGATIVE mg/dL (<30 mg/dL); URINE UROBILINOGEN 0.2 E.U./dL (<1 E.U./dL)
[2017-09-15 18:07] LABS: URINE APPEARANCE CLEAR (CLEAR); URINE COLOR YELLOW (YELLOW)
[2017-09-15 18:13] LABS: BASO # 0.02 K/mm3 (0.0-2.0); BASO % 0.2 % (0.0-3.0); EOS # 0.8 (0.0-0.7); EOS % 8.3 % (1.5-5.0); GRAN # 6.52 (1.4-6.5); GRAN % 64.7 % (50.0-68.0); HEMOGLOBIN 11.5 g/dL (12.0-16.0); LYMPH # 1.8 (1.2-3.4); MEAN CELL VOLUME 66.7 fl (80.0-105.0); MEAN CORPUSCULAR HEMOGLOBIN 21.7 pg (25.0-35.0); MEAN CORPUSCULAR HGB CONC 32.6 g/dl (31.0-37.0); MEAN PLATELET VOLUME 10.5 fl (7.0-11.0); MONO # 0.9 (0.1-0.6); MONO % 8.8 % (1.0-6.0); RBC 5.29 10^6/uL (3.5-6.1); RED CELL DISTRIBUTION WIDTH 16.4 % (11.5-14.5); WHITE BLOOD COUNT 10.1 10^3/ul (4.5-11.0)
[2017-09-15 18:15] LABS: VENOUS BLOOD GAS BASE EXCESS 1.5 mmol/L (0.0-2.0); VENOUS BLOOD GAS PO2 77 mm/Hg (30-55); VENOUS BLOOD PH 7.38 (7.32-7.43)
[2017-09-15 18:18] LABS: URINE EPITHELIAL CELLS 0 - 2 /hpf (0-5); URINE WBC 0 - 2 /hpf (0-6)
[2017-09-15 18:19] LABS: URINE BACTERIA FEW (NEG)
[2017-09-15 18:20] LABS: INR 1.09 (0.93-1.08); PROTHROMBIN TIME 12.5 SECONDS (9.4-12.5)
[2017-09-15 18:26] LABS: ALB/GLOB RATIO 1.3 (1.1-1.8); ALBUMIN 4.5 g/dL (3.0-4.8); ALT/SGPT 36 U/L (7-56); AST/SGOT 30 U/L (14-36); BLOOD UREA NITROGEN 8 mg/dL (7-21); CALCIUM 9.7 mg/dL (8.4-10.5); GFR AFRICAN-AMERICAN > 60; GFR NON-AFRICAN AMERICAN > 60
[2017-09-15 18:37] LABS: TROPONIN I < 0.01 ng/mL
--- NOTE | 2017-09-15 20:07 | CARD ---
APPROVED REPORT EKG Measurement Heart [id number] <Conclusion> Sinus tachycardia Otherwise normal ECG
[2017-09-15] MEDS ORDERED: Pneumococcal 23-Valent Vaccine IM ONE (22:48)
[2017-09-16] MEDS: Albuterol-Ipratrop 3 mg / 0.5 (3 ml) UD IH SCH ×3 (07:31→19:46)
[2017-09-16] MEDS: MethylPREDNISolone 40 mg Vial IVP SCH ×2 (10:21→21:31)
[2017-09-16] MEDS: cefTRIAXone 1 gm 1 GM/100 ML BAG IVPB SCH (11:37)
--- NOTE | 2017-09-16 15:59 | HP ---
DATE OF EXAM: 09/16/2017 CHIEF COMPLAINT AND HISTORY OF PRESENT ILLNESS: This is a 72-year-old female who is coming into the hospital because of shortness of breath. She has a history of asthma and she was seen by Dr. Negron, her primary care doctor. The patient says that she has been having worsening shortness of breath. She has been using her medications, but they have not been helping including her inhalers. She says she does feel better this morning after she was given nebulizer treatments and steroids in the ER. She has no fevers. She does have a cough, it is dry. She has no abdominal pain, no back pain, no dysuria or frequency, no nocturia. She has no headaches or dizziness. No chest pain. REVIEW OF SYSTEMS: All other review of symptoms are within normal limits except what was mentioned. ALLERGIES: SULFA. HOME MEDICATIONS: Spiriva, Dulera and Norvasc. SOCIAL HISTORY: She does have a history of smoking. She denies alcohol or drugs. FAMILY HISTORY: Noncontributory. PHYSICAL EXAMINATION VITAL SIGNS: Temperature is 98.5, pulse of 94, blood pressure is 122/65, respirations 19, O2 saturation 98%. GENERAL: The patient lying in bed, uncomfortable, and in no acute distress. HEENT: Atraumatic and normocephalic. Anicteric sclerae. Moist mucosa. [place] conjunctivae. No oral lesions. NECK: No JVD, anterior and posterior adenopathy, thyromegaly, or bruits. CARDIOVASCULAR: S1 and S2 regular. No murmur, rubs, or gallop. LUNGS: Good bilateral air entry. There is wheezing bilaterally. No rales or rhonchi. ABDOMEN: Bowel sounds are positive. Soft, nontender and nondistended. No hepatosplenomegaly. No rebound and no guarding EXTREMITIES: No cyanosis, clubbing, or edema. NEUROLOGIC: No facial asymmetry. Tongue is midline. No uvula deviation. Power is 5/5 upper extremity and lower extremity. Sensation intact in upper extremity and lower extremity. PSYCHIATRIC: She is awake, alert and oriented x3. No anxiety or depression. She has normal affect. GENITOURINARY: No CVA tenderness. VASCULAR: 2+ pulses in the carotid pulses and pedal pulses. SKIN: No erythema or nodules SPINE: Shows normal curvature. LABORATORY DATA: Labs have been reviewed. White count of 10.1, hemoglobin of 11.5. Chemistry shows a creatinine is 0.7. Influenza has been negative. Chest x-ray shows no active disease. EKG shows sinus tachycardia at 112, QTc is 442. ASSESSMENT: 1. Acute asthma exacerbation. 2. Hypertension. PLAN: The patient is going to be admitted to the hospital. She is going to be on nebulizer treatment. She has been given steroids. She does have improvement of her symptoms. She was given a dose of Rocephin, we will continue. She says she does feel better, but she continues to wheeze. She says she is able to ambulate, but does get short of breath when she ambulates. Quan Oconnor MD
[2017-09-16] MEDS: Promethazine 6.25 MG/5 ML CUP PO PRN (19:53)
[2017-09-17] MEDS: Promethazine 6.25 MG/5 ML CUP PO PRN ×3 (06:11→21:15)
[2017-09-17] MEDS: Albuterol-Ipratrop 3 mg / 0.5 (3 ml) UD IH PRN (06:11)
[2017-09-17] MEDS: Albuterol-Ipratrop 3 mg / 0.5 (3 ml) UD IH SCH ×3 (09:21→19:21)
[2017-09-17] MEDS: MethylPREDNISolone 40 mg Vial IVP SCH ×2 (10:11→21:14)
[2017-09-17] MEDS: cefTRIAXone 1 gm 1 GM/100 ML BAG IVPB SCH (10:12)
--- NOTE | 2017-09-17 12:51 | PN ---
DATE: 09/17/2017 SUBJECTIVE: The patient has no complaints of any chest pain. No shortness of breath. No headaches or dizziness. PHYSICAL EXAMINATION: VITAL SIGNS: Temperature is 98, pulse of 96, blood pressure is 102/52, respirations 20. GENERAL: The patient is lying in bed, flat, comfortable. HEENT: No oral lesion. Anicteric sclerae. Moist mucosa. NECK: No JVD, adenopathy, or thyromegaly. CARDIOVASCULAR: S1 and S2, regular. No murmurs, rubs, or gallops. LUNGS: Bilateral wheezing. No rales or rhonchi. ABDOMEN: Bowel sounds are positive, soft, nontender and nondistended. EXTREMITIES: No cyanosis, clubbing or edema. LABORATORY DATA: White count 10.1, hemoglobin 11.5. Creatinine Is 0.7. ASSESSMENT: 1. Acute asthma exacerbation. 2. Hypertension. PLAN: The patient is getting nebulizer treatment. She is on steroids. The patient is on promethazine for cough. She is on Rocephin for antibiotics. The patient is on oxygen therapy. She is on a heart-healthy diet. I will get pulmonary evaluation. She says she is feeling better from when she first came in. Quan Oconnor MD
[2017-09-18] MEDS: Albuterol-Ipratrop 3 mg / 0.5 (3 ml) UD IH PRN (05:04)
[2017-09-18] MEDS: Promethazine 6.25 MG/5 ML CUP PO PRN ×3 (05:04→19:24)
[2017-09-18 07:01] LABS: HEMOGLOBIN 11.3 g/dL (12.0-16.0); MEAN CELL VOLUME 66.8 fl (80.0-105.0); MEAN CORPUSCULAR HEMOGLOBIN 21.3 pg (25.0-35.0); MEAN CORPUSCULAR HGB CONC 31.9 g/dl (31.0-37.0); MEAN PLATELET VOLUME 9.7 fl (7.0-11.0); RBC 5.3 10^6/uL (3.5-6.1); RED CELL DISTRIBUTION WIDTH 16.7 % (11.5-14.5); WHITE BLOOD COUNT 16.8 10^3/ul (4.5-11.0)
[2017-09-18 07:54] LABS: ALB/GLOB RATIO 1.2 (1.1-1.8); ALT/SGPT 31 U/L (7-56); AST/SGOT 26 U/L (14-36); BLOOD UREA NITROGEN 16 mg/dL (7-21); CALCIUM 9.1 mg/dL (8.4-10.5); GFR AFRICAN-AMERICAN > 60; GFR NON-AFRICAN AMERICAN > 60
[2017-09-18] MEDS: Budesonide 0.5 mg/2 ml Inhal Susp UD IH SCH ×2 (08:25→19:50)
[2017-09-18] MEDS: Albuterol-Ipratrop 3 mg / 0.5 (3 ml) UD IH SCH ×3 (08:25→19:50)
[2017-09-18] MEDS: cefTRIAXone 1 gm 1 GM/100 ML BAG IVPB SCH (09:12)
[2017-09-18] MEDS: MethylPREDNISolone 40 mg Vial IVP SCH ×2 (09:12→21:03)
--- NOTE | 2017-09-18 12:25 | PN ---
DATE: 09/18/2017 SUBJECTIVE: The patient has shortness of breath with exertion. She says she is feeling better than when she came into the hospital. No headaches or dizziness. No nausea, no vomiting. PHYSICAL EXAMINATION: VITAL SIGNS: Temperature is 98.2, pulse is 97, blood pressure is 144/84, respirations . GENERAL: The patient is lying in bed, flat, comfortable. HEENT: No oral lesion. Anicteric sclerae. Moist mucosa. NECK: No JVD, adenopathy, or thyromegaly. CARDIOVASCULAR: S1 and S2, regular. No murmurs, rubs, or gallops. LUNGS: Clear to auscultation bilaterally. No wheeze, rales, or rhonchi. ABDOMEN: Bowel sounds are positive, soft, nontender and nondistended. EXTREMITIES: No cyanosis, clubbing or edema. LABORATORY DATA: White count of 16.8, hemoglobin 11.3. Creatinine is 0.7. ASSESSMENT: 1. Acute asthma exacerbation. 2. Hypertension. 3. Leukocytosis. PLAN: The patient is currently comfortable. Blood cultures and urine cultures have been negative. The patient's white count is elevated, most likely from the steroids. The patient had a chest x-ray on initial admission to the hospital and she did not have infiltrates. The patient is currently on nebulizer treatment. She is on amlodipine for hypertension. She is Rocephin for antibiotics. She is on steroids, Solu-Medrol twice a day. She is receiving oxygen. She is on a heart-healthy diet. Quan Oconnor MD
--- NOTE | 2017-09-18 13:20 | CON ---
DATE: 09/18/2017 PULMONARY CONSULTATION REFERRING PHYSICIAN: Dr. Quan Oconnor. REASON FOR CONSULTATION: Asthma. History is obtained via extensive discussion with the night nurse. I have also reviewed the chart at length, and discussed the case with the patient at length. HISTORY OF PRESENT ILLNESS: The patient is a 72-year-old female, with past medical history significant for asthma, hypertension who presented to [facility] - originally on 09/15/2017 - with a four-day history of worsening shortness of breath at rest, dyspnea on exertion, cough, and sputum production. There is no history of chest pain, coughing up of blood, or chest pain - made worse with deep respirations. There is no history of temperatures, chills or infectious exposure. There is no history of night sweats, weight loss or appetite change prior to the above events. No history of leg or calf pains. No history of syncope or diaphoresis. No history of recent travel or trauma. REVIEW OF SYSTEMS: No history of nausea, vomiting or diarrhea. No acute urinary symptoms. No new neurologic or musculoskeletal complaints. Rest of the review of systems is negative. ALLERGIES: SULFONAMIDES, ANTIBIOTICS. SOCIAL HISTORY: Negative for tobacco and negative for alcohol. FAMILY HISTORY: No inheritable diseases. HOME MEDICATIONS: Include Norvasc, Spiriva, Xolair, Dulera, DuoNeb. PHYSICAL EXAMINATION: GENERAL: The patient appears comfortable at rest. She is not short of breath. She is not using accessory muscles for breathing. VITAL SIGNS (last noted in the computer): Last temperature recorded is 97.9. Pulse this morning is approximately 88, respiratory rate 18/20, blood pressure 129/65. Oxygen saturation on room air is 94%-100%. HEENT: Normocephalic, atraumatic. No JVD. CARDIOVASCULAR: Systolic ejection murmur at the lower left sternal border. No S3 gallop. LUNGS: Decreased breath sounds at the bases. Mild rhonchi and wheezing bilaterally. EXTREMITIES: Mild edema. No cyanosis, no clubbing. Calves are nontender to palpation. GASTROINTESTINAL: Abdomen is soft, nontender and nondistended. Bowel sounds are positive. SKIN: No acute rash. NEUROLOGIC: Limited at the present time. PERTINENT LABORATORY DATA: Chest x-ray was done on 09/15/2017 and reviewed. There is no active disease noted. CBC: White count 10.1K, hemoglobin 11.5, hematocrit 35.3, platelets of 292,000. Complete metabolic profile: Glucose 188. Rest of the metabolic profile is within normal limits. IMPRESSION: 1. Acute bronchitis. 2. Asthma. 3. Hypertension. 4. Mild anemia. PLAN: I did discuss the case with the night nurse at length. I have also reviewed the chart at length and discussed case with the patient at length. The patient presented to [facility] - originally on 09/15/2017 - with a 4-day history of worsening pulmonary symptoms. I did review the chest x-ray as above. It shows no active disease. On physical exam, the patient remains in [id number] bronchospasm. However, there is no significant alveolar-arterial gradient. I will increase the DuoNeb treatments this morning, and add inhaled Pulmicort. I will continue with the current intravenous steroids for now. The patient also remains on antibiotic therapy. There are no temperatures noted. There is no leukocytosis. The patient does feel better and is clinically improved - compared to her initial status. Additional pulmonary intervention will be based on the clinical status of the patient. I will discuss the above with Dr. Oconnor this morning. Thank you very much for this pulmonary consultation. Lion Patel MD [facility]
[2017-09-19] MEDS: Albuterol-Ipratrop 3 mg / 0.5 (3 ml) UD IH SCH ×4 (02:01→20:11)
[2017-09-19 06:54] LABS: HEMOGLOBIN 11.6 g/dL (12.0-16.0); MEAN CELL VOLUME 66.4 fl (80.0-105.0); MEAN CORPUSCULAR HEMOGLOBIN 21.4 pg (25.0-35.0); MEAN CORPUSCULAR HGB CONC 32.2 g/dl (31.0-37.0); MEAN PLATELET VOLUME 9.8 fl (7.0-11.0); RBC 5.42 10^6/uL (3.5-6.1); RED CELL DISTRIBUTION WIDTH 16.5 % (11.5-14.5); WHITE BLOOD COUNT 13.7 10^3/ul (4.5-11.0)
[2017-09-19] MEDS: Budesonide 0.5 mg/2 ml Inhal Susp UD IH SCH ×2 (07:22→20:12)
--- NOTE | 2017-09-19 08:40 | PN ---
DATE: 09/19/2017 PULMONARY NOTE SUBJECTIVE: The patient appears comfortable this morning. She is not short of breath at rest. OBJECTIVE: VITAL SIGNS: Last temperature recorded is 97.9, pulse this morning 88, respiratory rate 16, blood pressure 143/74. Oxygen saturation on room air is 96%. HEENT: Normocephalic, atraumatic. No JVD. CARDIOVASCULAR: Systolic ejection murmur at the lower left sternal border. No S3 gallop. LUNGS: Improved breath sounds at the bases. Less rhonchi. Less wheezing. EXTREMITIES: Mild edema. No cyanosis, no clubbing. Calves are nontender to palpation. GI: Abdomen is soft, nontender and nondistended. Bowel sounds are positive. SKIN: No acute rash. NEUROLOGIC: Exam limited at the present time. IMPRESSION: 1. Acute bronchitis. 2. Asthma. 3. Hypertension. 4. Mild anemia. PLAN: The patient appears comfortable this morning. She is not short of breath at rest. She does state to feeling much better overall. On physical exam, her bronchospasm is definitely less. In addition, the oxygen saturation on room air is now 96%. I will continue with the current nebulizer treatments and inhaled steroids for now. However, I will decrease the intravenous steroids this morning. The patient remains on antibiotic therapy. There are no temperatures noted. The leukocytosis is decreased. The clinical status of the patient is significantly improved - compared to a few days ago. I will discuss the above with Dr. Oconnor. Lion Patel MD [facility]
[2017-09-19] MEDS: MethylPREDNISolone 40 mg Vial IVP SCH ×2 (09:26→21:13)
[2017-09-19] MEDS: cefTRIAXone 1 gm 1 GM/100 ML BAG IVPB SCH (09:26)
[2017-09-19] MEDS: Promethazine 6.25 MG/5 ML CUP PO PRN ×2 (09:32→21:12)
--- NOTE | 2017-09-19 23:50 | PN ---
DATE: 09/19/2017 SUBJECTIVE: The patient has no complaints of any chest pain, no shortness of breath. She says her breathing is better, but she still continues to wheeze. It is not as significant as it was before. She is able to ambulate better. PHYSICAL EXAMINATION: VITAL SIGNS: Temperature is 97.6, pulse of 66, blood pressure is 164/85, respirations 18. GENERAL: The patient is lying in bed, flat, comfortable. HEENT: No oral lesion. Anicteric sclerae. Moist mucosa. NECK: No JVD, adenopathy, or thyromegaly. CARDIOVASCULAR: S1 and S2, regular. No murmurs, rubs, or gallops. LUNGS: Clear to auscultation bilaterally. No wheeze, rales, or rhonchi. ABDOMEN: Bowel sounds are positive, soft, nontender and nondistended. EXTREMITIES: No cyanosis, clubbing or edema. LABORATORY DATA: White count of 13.7, hemoglobin of 11.6, creatinine 0.7. ASSESSMENT: 1. Acute asthma exacerbation. 2. Hypertension. 3. Leukocytosis. PLAN: The patient is currently on amlodipine for hypertension. She is on Pulmicort. She is on Solu-Medrol, it has been tapered. She is on Vantin for antibiotics. She is on nebulizer treatment. Her cultures have been negative. I did review the notes from Infectious Disease as well as Pulmonary. Quan Oconnor MD
[2017-09-20] MEDS: Albuterol-Ipratrop 3 mg / 0.5 (3 ml) UD IH SCH ×4 (03:12→21:07)
[2017-09-20] MEDS: Budesonide 0.5 mg/2 ml Inhal Susp UD IH SCH ×2 (07:32→21:07)
[2017-09-20] MEDS: MethylPREDNISolone 40 mg Vial IVP SCH ×2 (09:15→21:13)
[2017-09-20] MEDS: Cefpodoxime (Vantin) 200 mg Tab PO SCH ×2 (09:15→21:13)
[2017-09-20] MEDS: Promethazine 6.25 MG/5 ML CUP PO PRN ×2 (09:16→21:13)
--- NOTE | 2017-09-20 11:10 | PN ---
DATE: 09/20/2017 PULMONARY NOTE SUBJECTIVE: The patient appears comfortable this morning. She is not short of breath at rest. OBJECTIVE: VITAL SIGNS (last noted in the computer): Temperature is 97.6, pulse 66, respirations 18, blood pressure 164/85. Oxygen saturation on room air is 98%. HEENT: Normocephalic, atraumatic. No JVD. CARDIOVASCULAR: Systolic ejection murmur at the lower left sternal border. No S3 gallop. LUNGS: Improved breath sounds at the bases. Still with mild rhonchi and wheezing bilaterally. EXTREMITIES: Mild edema. No cyanosis, no clubbing. Calves are nontender to palpation. GI: Abdomen is soft, nontender and nondistended. Bowel sounds are positive. SKIN: No acute rash. NEUROLOGIC: Exam limited at the present time. IMPRESSION: 1. Acute bronchitis. 2. Asthma. 3. Hypertension. 4. Mild anemia. PLAN: The patient appears comfortable this morning. She is not short of breath at rest. She does state to feeling much better overall. On physical exam, she remains in mild bronchospasm - albeit less compared to her initial presentation. In addition, the alveolar-arterial gradient continues to resolve. Oxygen saturation on room air is now 98%. I will continue with the current nebulizer treatments and current intravenous steroids (decreased yesterday) for now. The patient remains on antibiotic therapy. There are no temperatures noted. Culture results are negative. Clinical status of the patient continues to slowly improve. The patient is reminded to be out of bed as much as possible. I will discuss the above with Dr. Oconnor. Lion Patel MD GERI
--- NOTE | 2017-09-20 21:26 | PN ---
DATE: 09/20/2017 SUBJECTIVE: The patient has no complaints of any chest pain. She says her shortness of breath is better, but she continues to wheeze. She has no headaches or dizziness. PHYSICAL EXAMINATION: VITAL SIGNS: Temperature is 98.3, pulse of 100, blood pressure is 144/64, respirations 20. GENERAL: The patient is lying in bed, flat, comfortable. HEENT: No oral lesion. Anicteric sclerae. Moist mucosa. NECK: No JVD, adenopathy, or thyromegaly. CARDIOVASCULAR: S1 and S2, regular. No murmurs, rubs, or gallops. LUNGS: Clear to auscultation bilaterally. No wheeze, rales, or rhonchi. ABDOMEN: Bowel sounds are positive, soft, nontender and nondistended. EXTREMITIES: No cyanosis, clubbing or edema. LABORATORY DATA: White count of 13.7, hemoglobin 11.6. Creatinine 0.7. ASSESSMENT: 1. Acute chronic obstructive pulmonary disease. 2. Hypertension. PLAN: The patient is currently on nebulizer treatment. She is going to continue with steroids. I did speak to Dr. Patel regarding the case. The patient is on Vantin for antibiotic. This will be continued. She is getting heart-healthy diet. Quan Oconnor MD
[2017-09-21] MEDS: Albuterol-Ipratrop 3 mg / 0.5 (3 ml) UD IH SCH ×4 (02:00→20:58)
[2017-09-21] MEDS: Budesonide 0.5 mg/2 ml Inhal Susp UD IH SCH ×2 (07:17→20:58)
--- NOTE | 2017-09-21 07:31 | PN ---
DATE: 09/21/2017 PULMONARY NOTE SUBJECTIVE: The patient appears comfortable at rest. She is not short of breath. PHYSICAL EXAMINATION VITAL SIGNS: (last noted in the computer): Temperature is 98.5, pulse 97, respirations 16, blood pressure 151/76. Oxygen saturation on room air is 98%. HEENT: Normocephalic, atraumatic. No JVD. CARDIOVASCULAR: Systolic ejection murmur at the lower left sternal border. No S3 gallop. LUNGS: Less rhonchi. Much less wheezing. EXTREMITIES: Mild edema. No cyanosis. No clubbing. Calves are nontender to palpation. GI: Abdomen is soft, nontender and nondistended. Bowel sounds are positive. SKIN: No acute rash. NEUROLOGIC: Limited at the present time. IMPRESSION: 1. Acute bronchitis. 2. Asthma. 3. Hypertension. 4. Mild anemia. PLAN: The patient appears comfortable this morning. She is not short of breath at rest. She does state to feeling much better overall. She does, however, remain mildly dyspneic on exertion. On physical exam, her bronchospasm continues to slowly resolve. In addition, there is no significant alveolar-arterial gradient. I will continue with the current nebulizer treatments and decrease the intravenous steroids this morning. The patient also remains on oral antibiotic therapy. There are no temperatures noted. The clinical status of the patient is significantly improved overall. The patient is reminded to be out of bed as much as possible. I will discuss the above with Dr. Oconnor. Lion Patel MD [facility]
[2017-09-21] MEDS: MethylPREDNISolone 40 mg Vial IVP SCH ×2 (09:53→22:34)
[2017-09-21] MEDS: Cefpodoxime (Vantin) 200 mg Tab PO SCH (09:54)
[2017-09-21 14:57] VITALS: RESP 20
--- NOTE | 2017-09-21 16:06 | PN ---
DATE: 09/21/2017 SUBJECTIVE: The patient has no chest pain. She says she does get short of breath, but it has been improving. She has no headaches or dizziness. PHYSICAL EXAMINATION: VITAL SIGNS: Temperature of 98.2, pulse of 70, blood pressure 139/61, respirations 16. GENERAL: The patient is lying in bed, flat, comfortable. HEENT: No oral lesion. Anicteric sclerae. Moist mucosa. NECK: No JVD, adenopathy, or thyromegaly. CARDIOVASCULAR: S1 and S2, regular. No murmurs, rubs, or gallops. LUNGS: Bilateral mild wheezing. No rales or rhonchi. Good air entry. ABDOMEN: Bowel sounds are positive, soft, nontender and nondistended. EXTREMITIES: No cyanosis, clubbing or edema. ASSESSMENT: 1. Acute asthma exacerbation. 2. Hypertension. PLAN: The patient is currently comfortable. She is on nebulizer treatments. She is receiving amlodipine for her hypertension. She is on Pulmicort. She is also on Solu-Medrol. She is on Vantin for her antibiotics. She is on a heart healthy diet. Quan Oconnor MD
[2017-09-21 23:11] VITALS: TEMP 98.2
[2017-09-21] MEDS: Albuterol-Ipratrop 3 mg / 0.5 (3 ml) UD IH PRN (23:34)
[2017-09-22] MEDS: Albuterol-Ipratrop 3 mg / 0.5 (3 ml) UD IH SCH ×2 (01:19→07:25)
[2017-09-22] MEDS: Albuterol-Ipratrop 3 mg / 0.5 (3 ml) UD IH PRN (04:58)
[2017-09-22] MEDS: Budesonide 0.5 mg/2 ml Inhal Susp UD IH SCH (07:25)
[2017-09-22 07:32] VITALS: PULSE 96; O2SAT 99
--- NOTE | 2017-09-22 08:25 | PN ---
DATE: 09/22/2017 PULMONARY NOTE SUBJECTIVE: The patient appears very comfortable this morning. She is not short of breath at rest. OBJECTIVE: VITAL SIGNS: Last temperature recorded is 98.2, pulse this morning is 88, respiratory rate 18, blood pressure 148/68. Oxygen saturation on room air is 95%. HEENT: Normocephalic, atraumatic. No JVD. CARDIOVASCULAR: Systolic ejection murmur at the lower left sternal border. No S3 gallop. LUNGS: Minimal/less rhonchi. No wheezing this morning. EXTREMITIES: Mild edema. No cyanosis, no clubbing. Calves are nontender to palpation. GI: Abdomen is soft, nontender and nondistended. Bowel sounds are positive. SKIN: No acute rash. NEUROLOGIC: Exam limited at the present time. IMPRESSION: 1. Acute bronchitis. 2. Asthma. 3. Hypertension. 4. Mild anemia. PLAN: The patient appears very comfortable this morning. She is not short of breath at rest. She does state to feeling much, much better overall. She also has much less dyspnea on exertion. On physical exam, her bronchospasm continues to resolve. In addition, the oxygen saturation on room air is 95%. I will continue the current nebulizer treatments and change to oral steroids this morning. The oral antibiotic therapy has been discontinued by Dr. Oconnor. There are no temperatures noted. The clinical status of the patient is significantly improved overall. The patient is asking to be discharged in the near future. I will discuss the above with Dr. Oconnor. Lion Patel MD MTDD
[2017-09-22 10:28] VITALS: BP 148/80
--- NOTE | 2017-09-22 14:17 | DS ---
HISTORY OF PRESENT ILLNESS: This is a 72-year-old female who had come to the hospital with an acute asthma exacerbation. She was given IV steroids, nebulizer treatments and had improvement in her symptoms. The patient was seen by Pulmonary and was being followed. The patient has no complaints of any headaches or dizziness. She says her breathing is better. She has no nausea, no vomiting, no dysuria. PHYSICAL EXAMINATION: VITAL SIGNS: Temperature is 98.2, pulse of 96, blood pressure is 148/81, respirations 20, O2 saturation 99%. GENERAL: The patient is lying in bed, flat, comfortable. HEENT: No oral lesion. Anicteric sclerae. Moist mucosa. NECK: No JVD, adenopathy, or thyromegaly. CARDIOVASCULAR: S1 and S2, regular. No murmurs, rubs, or gallops. LUNGS: Good bilateral air entry. Mild wheezing bilaterally. No rhonchi. ABDOMEN: Bowel sounds are positive. Soft, nontender and nondistended. EXTREMITIES: No cyanosis, clubbing or edema. ASSESSMENT: 1. Acute asthma exacerbation. 2. Hypertension. PLAN: The patient is currently on nebulizer treatment. She is going to go home with prednisone, Vantin. She is on oxygen therapy. She is going to follow up with the primary care doctor. CONDITION: Stable. ACTIVITIES: Increase as tolerated. Follow up with Dr. Negron in 1 to 2 weeks. Follow up with Dr. Patel in 1 to 2 weeks. Quan Oconnor MD
== END 2017-09-22 12:09 | disposition home or self-care (01) | DRG 202 ==
LOC: ED 15:37 → ERH 15:51 → 5RNO 19:15
PROVIDERS: ADMIT Internal Medicine Nephrology; ATTEND Internal Medicine Nephrology
DX: J45.901 Unspecified asthma with (acute) exacerbation (principal); J44.0 Chronic obstructive pulmonary disease with (acute) lower respiratory infection; J20.9 Acute bronchitis, unspecified; I10 Essential (primary) hypertension; D64.9 Anemia, unspecified; Z87.891 Personal history of nicotine dependence

== ENCOUNTER 2017-11-20 18:22 | Inpatient (IN) | payer MEDICARE, BC ==
[2017-11-20 18:48] VITALS: BMI 29.7
[2017-11-20] MEDS ORDERED: Sodium Chloride 0.9% 1,000 ML IV STA (18:50)
[2017-11-20] MEDS ORDERED: Morphine 4 mg/ml ISec IVP STA (18:50)
--- NOTE | 2017-11-20 18:59 | ED PDOC ---
Arrival/HPI - General Chief Complaint: Abdominal Pain Time Seen by Provider: 11/20/17 18:30 Historian: Patient - History of Present Illness Narrative History of Present Illness (Text): 11/20/17 18:54 72 year old female, whose past medical history includes asthma, who presents to the emergency department sent by Dr. Almendarez for rt flank pain that radiates to groin, for admission to Dr. Park. Dr. Almendarez states patient needs further evaluation for possible pyelonephritis or kidney stones. Patient denies any fever, chills, chest pain, shortness of breath, nausea, vomiting, diarrhea, neck pain, headache, dizziness, or any other complaints. Symptom Onset: Gradual Symptom Course: Unchanged Activities at Onset: Light Context: Home Past Medical History - Provider Review Nursing Documentation Reviewed: Yes - Infectious Disease Hx of Infectious Diseases: None - Tetanus Immunization Tetanus Immunization: Unknown - Reproductive Menopause: Yes - Cardiac Hx Hypertension: Yes - Pulmonary Hx Respiratory Disorders: Yes (home nebulizer machine) Hx Asthma: Yes Hx Bronchitis: Yes Hx Chronic Obstructive Pulmonary Disease (COPD): Yes Hx Pneumonia: Yes Other/Comment: recent sinus infection - Neurological Hx Neurological Disorder: No - HEENT Hx HEENT Disorder: No Hx Cataracts: Yes (b/l cat sx 2009) - Renal Hx Renal Disorder: No - Endocrine/Metabolic Hx Endocrine Disorders: No - Hematological/Oncological Hx Blood Disorders: No - Integumentary Hx Dermatological Disorder: No - Musculoskeletal/Rheumatological Hx Musculoskeletal Disorders: No Hx Arthritis: Yes (back) Hx Back Pain: Yes (arthritic pain lower back) Hx Degenerative Joint Disease: Yes - Gastrointestinal Hx Gastrointestinal Disorders: No - Genitourinary/Gynecological Hx Genitourinary Disorders: No - Psychiatric Hx Psychophysiologic Disorder: No Hx Substance Use: No - Surgical History Hx Hysterectomy: Yes (2004) Other/Comment: sinus sx, bilat cataract, myomectomy x2 fibroid came back a third time pt decided to have hysterectomy in 2004, r knee arthoscopic and torn miniscus sx 08/2015 - Anesthesia Hx Anesthesia: Yes Hx Anesthesia Reactions: No Hx Malignant Hyperthermia: No - Suicidal Assessment Feels Threatened In Home Enviroment: No Family/Social History - Physician Review Nursing Documentation Reviewed: Yes Family/Social History: Unknown Family HX Smoking Status: Former Smoker Hx Alcohol Use: No Hx Substance Use: No Hx Substance Use Treatment: No Allergies/Home Meds Allergies/Adverse Reactions: Allergies Sulfa (Sulfonamide Antibiotics) Allergy (Verified 09/15/17 15:47) URTICARIA Home Medications: Home Meds Medication Instructions Recorded Confirmed Tiotropium [Spiriva] 1 vial NEB DAILY 03/31/13 09/15/17 Mometasone/Formoterol [Dulera 200 1 ru IH BID 08/15/14 09/15/17 Mcg/5 Mcg Inhaler] amLODIPine [Norvasc] 5 mg PO DAILY 02/03/17 09/15/17 Review of Systems - Physician Review All systems were reviewed & negative as marked: Yes - Review of Systems Constitutional: Normal Eyes: Normal ENT: Normal Respiratory: Normal. absent: SOB, Cough Cardiovascular: Normal. absent: Chest Pain Gastrointestinal: Normal. absent: Abdominal Pain, Diarrhea, Nausea, Vomiting Genitourinary Female: Normal. absent: Dysuria, Frequency Musculoskeletal: Back Pain (right flank pain that radiates to groin). absent: Neck Pain Skin: Normal. absent: Rash Neurological: Normal. absent: Headache Endocrine: Normal Hemo/Lymphatic: Normal Psychiatric: Normal Physical Exam Vital Signs Reviewed: Yes Vital Signs Temp Pulse Resp BP Pulse Ox 11/20/17 20:26 100 H 18 147/56 L 97 11/20/17 18:47 99.2 F 95 H 20 162/70 H 95 Temperature: Afebrile Blood Pressure: Hypertensive Pulse: Tachycardic Respiratory Rate: Normal Appearance: Positive for: Well-Appearing, Non-Toxic, Comfortable Pain Distress: None Mental Status: Positive for: Alert and Oriented X 3 - Systems Exam Head: Present: Atraumatic, Normocephalic Pupils: Present: PERRL Extroacular Muscles: Present: EOMI Conjunctiva: Present: Normal Mouth: Present: Moist Mucous Membranes Neck: Present: Normal Range of Motion Respiratory/Chest: Present: Clear to Auscultation, Good Air Exchange. No: Respiratory Distress, Accessory Muscle Use Cardiovascular: Present: Regular Rate and Rhythm, Normal S1, S2. No: Murmurs Abdomen: No: Tenderness, Distention, Peritoneal Signs Back: Present: Other (Tenderness to rt flank) Upper Extremity: Present: Normal Inspection. No: Cyanosis, Edema Lower Extremity: Present: Normal Inspection. No: Edema Neurological: Present: GCS=15, CN II-XII Intact, Speech Normal Skin: Present: Warm, Dry, Normal Color. No: Rashes Psychiatric: Present: Alert, Oriented x 3, Normal Insight, Normal Concentration Medical Decision Making ED Course and Treatment: 11/20/17 19:05 Impression: 72 year old female presents to the emergency department sent by Dr. Almendarez for rt flank pain that radiates to the groin. Plan: -- VBG -- CT abd/pelvis -- Morphine -- Zofran -- Sodium Chloride -- Blood Culture -- Urine Culture -- Urinalysis -- Reassess and disposition Progress Notes: 11/20/17 21:19 CT abd/pelvis reviewed, shows: Limitations: Limited evaluation due to lack of any contrast. Lung bases: Atelectatic changes at the right lung base. ABDOMEN: Liver: Multiple cysts in the liver, one of the lesion has calcification in the inferior aspect. It measures 4.8 cm. Gallbladder and bile ducts: Unremarkable. No calcified stones. No ductal dilation. Pancreas: Pancreas evaluation is limited. No ductal dilation. Spleen: Unremarkable. No splenomegaly. Adrenals: Unremarkable. No mass. Kidneys and ureters: 6 mm calculus in the right proximal ureter with moderate right hydronephrosis. Nonobstructing calculi in the right kidney. Stomach and bowel: Bowel evaluation is limited due to lack of distention. No mucosal thickening. PELVIS: Appendix: No findings to suggest acute appendicitis. Bladder: Unremarkable. No stones. Reproductive: Unremarkable as visualized. ABDOMEN and PELVIS: Intraperitoneal space: Unremarkable. No free air. No significant fluid collection. Bones/joints: Sclerotic density in the right iliac bone. Slight anterolisthesis of L4-L5. No acute fracture. No dislocation. Soft tissues: Unremarkable. Vasculature: Unremarkable. No abdominal aortic aneurysm. Lymph nodes: Unremarkable. No enlarged lymph nodes. IMPRESSION: 1. 6 mm calculus in the right proximal ureter with moderate right hydronephrosis. 2. Multiple cysts in the liver, one of the lesion has calcification in the inferior aspect. It measures 4.8 cm. - Lab Interpretations Lab Results: 11/20/17 19:22 11/20/17 20:06 Lab Results 11/20/17 20:06: Sodium 140, Chloride 103, Potassium 4.2, Carbon Dioxide 25, Anion Gap 16, BUN 17, Creatinine 1.1, Est GFR ( Amer) 59, Est GFR (Non- Af Amer) 49, Random Glucose 102, Calcium 8.9, Total Bilirubin 0.4, AST 28, ALT 36, Alkaline Phosphatase 98, Total Protein 7.2, Albumin 3.9, Globulin 3.3, Albumin/Globulin Ratio 1.2 11/20/17 19:34: Urine Color Light yellow, Urine Appearance Clear, Urine pH 6.0, Ur Specific [place] 1.020, Urine Protein Trace H, Urine Glucose (UA) Negative, Urine Ketones Trace H, Urine Blood Small H, Urine Nitrate Negative, Urine Bilirubin Negative, Urine Urobilinogen 4.0 H, Ur Leukocyte Esterase Small H, Urine RBC 10 - 15, Urine WBC 5 - 10, Ur Epithelial Cells 10 - 12, Urine Bacteria Mod 11/20/17 19:22: pO2 44, VBG pH 7.32, VBG pCO2 52.0, VBG HCO3 26.8, VBG Total CO2 28.4 H, VBG O2 Sat (Calc) 79.4 H, VBG Base Excess -0.1 L, VBG Potassium 6.1 H, Sodium 134.0, Chloride 109.0 H, Glucose 120 H, Lactate 1.3, FiO2 21.0, Venous Blood Potassium 6.1 H 11/20/17 19:22: PT 12.0, INR 1.05 11/20/17 19:22: WBC 14.2 H, RBC 5.47, Hgb 11.7 L, Hct 36.3, MCV 66.4 L, MCH 21.4 L, MCHC 32.2, RDW 16.7 H, Plt Count 315, MPV 10.2, Gran % 62.2, Lymph % ( Auto) 21.1 L, [place] % (Auto) 7.4 H, Eos % (Auto) 8.8 H, Baso % (Auto) 0.5, Gran # 8.85 H, Lymph # (Auto) 3.0, [place] # (Auto) 1.1 H, Eos # (Auto) 1.3 H, Baso # ( Auto) 0.07 - RAD Interpretation Radiology Orders: 11/20/17 18:53 ABDOMEN & PELVIS [ABD & PELVIS W/O PO OR IV CONT] [CT] Stat - Medication Orders Current Medication Orders: Ceftriaxone Sodium (Rocephin 2 Gm Ivpb) 2 gm in 100 mls @ 100 mls/hr IVPB STAT STA PRN Reason: Protocol Stop: 11/20/17 22:07 Discontinued Medications Sodium Chloride (Sodium Chloride 0.9%) 1,000 mls @ 999 mls/hr IV .Q1H1M STA Stop: 11/20/17 19:50 Last Admin: 11/20/17 19:32 Dose: 999 mls/hr eMAR Start Stop Document 11/20/17 19:32 HI (Rec: 11/20/17 19:32 HI [id number]) Intravenous Solution Start Date 11/20/17 Start Time 19:32 End Date 11/20/17 End time 20:32 Total Infusion Time 60 Morphine Sulfate (Morphine) 4 mg IVP STAT STA Stop: 11/20/17 18:51 Last Admin: 11/20/17 19:32 Dose: 4 mg MAR Pain Assessment Document 11/20/17 19:32 HI (Rec: 11/20/17 19:32 HI [id number]) Pain Reassessment Is this a pain reassessment? No IVP Administration Document 11/20/17 19:32 HI (Rec: 11/20/17 19:32 HI [id number]) Charges for Administration # of IVP Administrations 1 Ondansetron HCl (Zofran Inj) 4 mg IVP STAT STA Stop: 11/20/17 18:51 Last Admin: 11/20/17 19:32 Dose: 4 mg IVP Administration Document 11/20/17 19:32 HI (Rec: 11/20/17 19:32 HI [id number]) Charges for Administration # of IVP Administrations 1 - Scribe Statement The provider has reviewed the documentation as recorded by the Scribtaqueria Dodd All medical record entries made by the Scribe were at my direction and personally dictated by me. I have reviewed the chart and agree that the record accurately reflects my personal performance of the history, physical exam, medical decision making, and the department course for this patient. I have also personally directed, reviewed, and agree with the discharge instructions and disposition. Disposition/Present on Arrival - Present on Arrival History of DVT/PE: No History of Uncontrolled Diabetes: No Urinary Catheter: No History of Decub. Ulcer: No History Surgical Site Infection Following: None - Disposition Forms: [employer] (Swedish)
[2017-11-20 19:44] LABS: VENOUS BLOOD GAS BASE EXCESS -0.1 mmol/L (0.0-2.0); VENOUS BLOOD GAS PO2 44 mm/Hg (30-55); VENOUS BLOOD PH 7.32 (7.32-7.43)
[2017-11-20 20:07] LABS: BASO # 0.07 K/mm3 (0.0-2.0); BASO % 0.5 % (0.0-3.0); EOS # 1.3 (0.0-0.7); EOS % 8.8 % (1.5-5.0); GRAN # 8.85 (1.4-6.5); GRAN % 62.2 % (50.0-68.0); HEMOGLOBIN 11.7 g/dL (12.0-16.0); LYMPH % 21.1 % (22.0-35.0); MEAN CELL VOLUME 66.4 fl (80.0-105.0); MEAN CORPUSCULAR HEMOGLOBIN 21.4 pg (25.0-35.0); MEAN CORPUSCULAR HGB CONC 32.2 g/dl (31.0-37.0); MEAN PLATELET VOLUME 10.2 fl (7.0-11.0); MONO # 1.1 (0.1-0.6); MONO % 7.4 % (1.0-6.0); RBC 5.47 10^6/uL (3.5-6.1); RED CELL DISTRIBUTION WIDTH 16.7 % (11.5-14.5); WHITE BLOOD COUNT 14.2 10^3/ul (4.5-11.0)
[2017-11-20 20:13] LABS: URINE BILIRUBIN NEGATIVE (NEGATIVE); URINE BLOOD SMALL (NEGATIVE); URINE GLUCOSE (UA) NEGATIVE (NEGATIVE); URINE LEUKOCYTE ESTERASE SMALL Leu/uL (NEGATIVE); URINE PROTEIN TRACE mg/dL (<30 mg/dL)
[2017-11-20 20:15] LABS: URINE APPEARANCE CLEAR (CLEAR); URINE COLOR LIGHT YELLOW (YELLOW)
[2017-11-20 20:18] LABS: INR 1.05 (0.93-1.08)
[2017-11-20 20:22] LABS: ALB/GLOB RATIO 1.2 (1.1-1.8); ALBUMIN 3.9 g/dL (3.0-4.8); CALCIUM 8.9 mg/dL (8.4-10.5)
[2017-11-20 20:31] LABS: URINE BACTERIA MOD (NEG)
[2017-11-20] MEDS ORDERED: cefTRIAXone 2 GM IN NS 2 GM/100 ML BAG IVPB STA (21:08)
[2017-11-20] MEDS ORDERED: Morphine 4 mg/ml ISec IVP PRN (22:30)
[2017-11-20] MEDS ORDERED: Oxycodone/Acetaminophen 5/325 mg Tab PO PRN (22:31)
[2017-11-20] MEDS ORDERED: Sodium Chloride 0.9% 1,000 ML IV SCH (22:45)
[2017-11-21 07:01] LABS: HEMOGLOBIN 9.9 g/dL (12.0-16.0); MEAN CELL VOLUME 66.2 fl (80.0-105.0); MEAN CORPUSCULAR HEMOGLOBIN 21.2 pg (25.0-35.0); MEAN PLATELET VOLUME 9.5 fl (7.0-11.0); RBC 4.67 10^6/uL (3.5-6.1); RED CELL DISTRIBUTION WIDTH 16.7 % (11.5-14.5); WHITE BLOOD COUNT 8.8 10^3/ul (4.5-11.0)
[2017-11-21 07:21] LABS: ALB/GLOB RATIO 1.2 (1.1-1.8); ALBUMIN 3.4 g/dL (3.0-4.8); CALCIUM 8.6 mg/dL (8.4-10.5)
[2017-11-21] MEDS ORDERED: Albuterol-Ipratrop 3 mg / 0.5 (3 ml) UD IH PRN (08:02)
--- NOTE | 2017-11-21 08:37 | CT ---
Date of service: 11/20/2017 PROCEDURE: CT Abdomen and Pelvis without intravenous contrast HISTORY: Right Flank Pain COMPARISON: None. TECHNIQUE: Without contrast.. Contrast dose: 0 Radiation dose: Total exam DLP = 591.85 mGy-cm. This CT exam was performed using one or more of the following dose reduction techniques: Automated exposure control, adjustment of the mA and/or kV according to patient size, and/or use of iterative reconstruction technique. FINDINGS: LOWER THORAX: Thickening of the right major fissure, nonspecific. No infiltrate/ effusion. LIVER: UnremarkableNormal size, contour and attenuation. Multiple rounded low-attenuation masses, nonspecific. In the superior anterior right lobe there is a 5.3 cm mass. There is a small amount of curvilinear mural calcification associated with this mass. In the inferior right hepatic lobe there is a 3.1 cm mass. Additional smaller masses are identified in both lobes of the liver. Further evaluation with ultrasound examination is advised. No biliary dilatation. Smooth contour. . GALLBLADDER AND BILE DUCTS: Unremarkable. PANCREAS: Unremarkable. No gross lesion or ductal dilatation. SPLEEN: Unremarkable. ADRENALS: Unremarkable. No mass. KIDNEYS AND URETERS: Two small right lower pole renal calculi, largest 4 mm. Mild right hydronephrosis and right hydroureter. Obstructing proximal right ureteral calculus, 7 mm. Two additional calculi possibly within the right ureter, 4 mm in the mid aspect and 5 mm at the junction of the middle and distal thirds. No left hydronephrosis or urinary calculus. No renal mass VASCULATURE: Unremarkable. No aortic aneurysm. BOWEL: Sigmoid diverticulosis without evidence of diverticulitis no bowel obstruction APPENDIX: Unremarkable. Normal appendix. PERITONEUM: Unremarkable. No free fluid. No free air. LYMPH NODES: Unremarkable. No enlarged lymph nodes. BLADDER: Unremarkable. REPRODUCTIVE: Unremarkable status post hysterectomy BONES: No acute fracture. Grade 1 anterolisthesis at L4-5 without spondylolysis. OTHER FINDINGS: None. IMPRESSION: Obstructing 7 mm proximal right ureteral calculus. Two additional possible calculi more distally in the right ureter as described. Right hydronephrosis and proximal hydroureter. No perinephric fluid. Multiple rounded low-density hepatic masses common nonspecific. Recommend correlation with ultrasound examination. Additional minor findings as above. The preliminary findings for this examination were reported by [facility] at 8:50 p.m. on 11/20/2017. There is concurrence of this report with the preliminary findings.
[2017-11-21] MEDS: Tiotropium 18 mcg Cap For Inhalation IH SCH (09:44)
--- NOTE | 2017-11-21 09:47 | CP.PCM.HP ---
History of Present Illness - History of Present Illness History of Present Illness: H&P for Sherif Gonzalez PGY3 This is a 72yo female with PMH HTN, asthma who came to ED for back pain, abdominal pain and weakness for about 1 week. She went to her PMD Dr. Almendarez who told her she may have a kidney stone and told her to go to ED for a CT. Patient reports she has been having this R sided back pain for about 1 week and has not been feeling well. She said her urine was dark, but denies having dysuria or urinary frequency. She has never had a kidney stone before. Her abdominal pain is in the RLQ and radiates to her back. She denies chest pain, shortness of breath, nausea/vomiting/diarrhea, fever/chills, numbness/tingling. Patient states she drinks a lot of cranberry juice and pomegranate juice at home. She has not had any changes in medication. Past medical history: HTN, Asthma, fibroids s/p hysterectomy Past surgical history: Hysterectomy Home meds: Spiriva, Norvasc 10mg, Ventolin prn Allergies: Sulfa Social history: Remote Former smoker (quit 50yrs ago), denies EtOH or drug use. Retired Family history: Mom- of old age (89). Denies FH of cancer Present on Admission - Present on Admission Any Indicators Present on Admission: No Review of Systems - Review of Systems All systems: reviewed and no additional remarkable complaints except Review of Systems: 12 point ROS reviewed as per HPI and is otherwise negative. Past Patient History - Infectious Disease Hx of Infectious Diseases: None - Tetanus Immunizations Tetanus Immunization: Unknown - Past Social History Smoking Status: Never Smoked - CARDIAC Hx Hypertension: Yes Hx Peripheral Edema: Yes - PULMONARY Hx Asthma: Yes Hx Chronic Obstructive Pulmonary Disease (COPD): Yes - NEUROLOGICAL Hx Neurological Disorder: No - HEENT Hx Cataracts: Yes (B/L SX) - RENAL Hx Kidney Stones: Yes - ENDOCRINE/METABOLIC Hx Endocrine Disorders: No - HEMATOLOGICAL/ONCOLOGICAL Hx Blood Disorders: No - INTEGUMENTARY Hx Dermatological Problems: No - MUSCULOSKELETAL/RHEUMATOLOGICAL Hx Falls: No - GASTROINTESTINAL Hx Gastrointestinal Disorders: No - GENITOURINARY/GYNECOLOGICAL Other/Comment: MYOMECTOMY X2, ELIZABETH - PSYCHIATRIC Hx Substance Use: No - SURGICAL HISTORY Hx Surgeries: Yes Hx Musculoskeletal Surgery: Yes (ORTHROSCOPIC REPAR OF RT TORN MENISCUS) - ANESTHESIA Hx Anesthesia: Yes Hx Anesthesia Reactions: No Hx Malignant Hyperthermia: No Meds Allergies/Adverse Reactions: Allergies Allergy/AdvReac Type Severity Reaction Status Date / Time Sulfa (Sulfonamide Allergy URTICARIA Verified 09/15/17 15:47 Antibiotics) Physical Exam - Constitutional Appears: No Acute Distress - Head Exam Head Exam: ATRAUMATIC, NORMAL INSPECTION, NORMOCEPHALIC - Eye Exam Eye Exam: Normal appearance, PERRL Pupil Exam: NORMAL ACCOMODATION - ENT Exam ENT Exam: Mucous Membranes Moist - Respiratory Exam Respiratory Exam: Clear to Auscultation Bilateral, NORMAL BREATHING PATTERN. absent: Rales, Rhonchi, Wheezes - Cardiovascular Exam Cardiovascular Exam: REGULAR RHYTHM, +S1, +S2. absent: Gallop, Rubs, Systolic Murmur - GI/Abdominal Exam GI & Abdominal Exam: Normal Bowel Sounds, Soft. absent: Rebound, Rigid, Tenderness - Extremities Exam Extremities exam: Positive for: normal inspection. Negative for: calf tenderness, pedal edema - Back Exam Back exam: CVA tenderness (R) - Neurological Exam Neurological exam: Alert, CN II-XII Intact, Oriented x3 - Skin Skin Exam: Dry, Intact, Normal Color, Warm Results - Vital Signs Recent Vital Signs: Last Vital Signs Temp 98 F 11/21/17 07:30 Pulse 76 11/21/17 07:30 Resp 20 11/21/17 07:30 BP 180/80 H 11/21/17 07:30 Pulse Ox 98 11/21/17 07:30 - Labs Result Diagrams: 11/21/17 06:20 11/21/17 06:20 Labs: Laboratory Results - last 24 hr 11/21/17 11/21/17 06:20 06:20 WBC 8.8 D RBC 4.67 Hgb 9.9 L Hct 30.9 L MCV 66.2 L MCH 21.2 L MCHC 32.0 RDW 16.7 H Plt Count 269 MPV 9.5 Sodium 140 Potassium 4.2 Chloride 105 Carbon Dioxide 24 Anion Gap 15 BUN 12 Creatinine 1.1 Est GFR ( Amer) 59 Est GFR (Non-Af Amer) 49 Random Glucose 97 Calcium 8.6 Magnesium 2.1 Total Bilirubin 0.3 AST 20 ALT 32 Alkaline Phosphatase 82 Total Protein 6.4 Albumin 3.4 Globulin 3.0 Albumin/Globulin Ratio 1.2 Assessment & Plan - Assessment and Plan (Free Text) Assessment: This is a 72yo female with PMH HTN, asthma who came is admitted for 1. Kidney stone - CT showed 6.7mm kidney stone on R with hydronephrosis 2. HTN 3. Hx of asthma Plan: Patient is NPO. Urology is on consult. Continue IV fluids. Pain is controlled. Patient will go to OR today for stone removal. She is independent in ADLS. Will continue Norvasc and Spiriva her home medications. Case seen, discussed and reviewed with Dr. Anastasia Collins PGY3 - Date & Time Date: 11/21/17 Time: 09:49
--- NOTE | 2017-11-21 11:20 | RAD ---
Date of service: 11/21/2017 HISTORY: pre-op COMPARISON: 09/15/2017 FINDINGS: LUNGS: No active pulmonary disease. PLEURA: No significant pleural effusion identified, no pneumothorax apparent. CARDIOVASCULAR: Normal. OSSEOUS STRUCTURES: No significant abnormalities. VISUALIZED UPPER ABDOMEN: Normal. OTHER FINDINGS: None. IMPRESSION: No active disease.
[2017-11-21] MEDS ORDERED: Iodixanol 320 mg/ml 50 ml Sol IV ONE (14:12)
[2017-11-21] MEDS ORDERED: Propofol 10 mg/ml Inj (20 ML) ONE (14:14)
[2017-11-21] MEDS ORDERED: Lidocaine 1% Inj (20ml) ONE (14:15)
[2017-11-21] MEDS ORDERED: cefTRIAXone (Rocephin) 1 gm Inj ONE (14:28)
[2017-11-21] MEDS ORDERED: cefTRIAXone (Rocephin) 1 gm Inj IVPB ONE (14:30)
[2017-11-21] MEDS ORDERED: Sodium Chloride 0.9% 1,000 ML IV SCH (15:00)
--- NOTE | 2017-11-21 15:43 | RAD ---
Date of service: 11/21/2017 PROCEDURE: Retrograde pyelogram HISTORY: placement RT nephroureteral stent COMPARISON: TECHNIQUE: 28.2 seconds of fluoro time. Cumulative dose 8.89 mGy. Eight images were submitted FINDINGS: Study shows opacification of the right ureter and renal collecting system with passage of a wire into the upper pole and placement of a ureteral stent. IMPRESSION: As above
--- NOTE | 2017-11-21 16:18 | CARD ---
APPROVED REPORT Date of service: 11/21/2017 EKG Measurement Heart [id number] <Conclusion> Normal sinus rhythm Normal ECG
--- NOTE | 2017-11-21 18:40 | PN ---
DATE: 11/21/2017 POSTOPERATIVE PROGRESS NOTE SUBJECTIVE: The patient is resting comfortably in her room. PHYSICAL EXAMINATION: VITAL SIGNS: She is afebrile. Temp of 98, pulse 90, BP 151/76, respirations 20. ABDOMEN: Benign. There is no rebound or guarding. IMPRESSION AND PLAN: The patient had a right ureteral stent placed today for multiple ureteral calculi with hydronephrosis and obstruction. If the patient is tolerating her diet and her pain is managed, she can be discharged home either tonight or tomorrow. I would send her home on a few days of antibiotics. The patient should contact my office later this week or next week regarding followup. She will need a procedure done to remove the ureteral calculi and eventually remove the ureteral stent. If the patient is medically okay, she can be discharged home from a urologic standpoint. Lemuel Hansen MD
--- NOTE | 2017-11-22 02:21 | OP ---
PROCEDURE DATE: 11/21/2017 PREOPERATIVE DIAGNOSES: Right hydronephrosis, right ureteral calculi, renal colic. POSTOPERATIVE DIAGNOSES: Right hydronephrosis, right ureteral calculi, renal colic. PROCEDURE: A cystoscopy, right retrograde pyelogram, insertion of a right ureteral stent. ATTENDING SURGEON: Lemuel Hansen MD. ANESTHESIA: General. SPECIMENS: There were none. DRAINS: A 6 x 24 right ureteral stent. COMPLICATIONS: There were none. OPERATIVE FINDINGS: After informed consent was obtained, the patient was taken to the operating room and placed on the operating table. Anesthesia was administered. The patient was then placed in a dorsal lithotomy position and prepped and draped in the usual sterile fashion. A 21-Moh[place] cystoscope was passed into the patient's bladder and full survey inspection was performed. There were no stones, tumors or foreign bodies of the bladder noted. Both ureteral orifices were visualized and appeared within normal limits. At this point, a [place] catheter was introduced through the cystoscope and guided into the right ureteral orifice. The right retrograde pyelogram was then performed by instilling contrast through the [place] catheter and into the right ureter during real-time fluoroscopy. There were multiple filling defects noted in the right ureter, which were mobile, appears to be calculi. The largest was in the upper ureter. There was dilatation of the upper ureter and there was mild hydronephrosis. At this point, a Sensor wire was obtained. The sensor wire was passed through the [place] catheter and guided up the ureter under fluoroscopic guidance. The wire was able to be passed beyond the calculi and coiled in the upper collecting system. At this point, the [place] catheter was removed and a 6 x 24 stent was obtained. The stent was passed through the cystoscope over the wire and into the right ureter. The stent was advanced proximally under direct and fluoroscopic guidance until it was in at the appropriate position. When the stent was in place, the guidewire was removed. A coil was seen in the upper collecting system on fluoroscopy. A coil was seen in the bladder on cystoscopy. At this point, the procedure was completed. A large amount of debris was noted exiting from the stent. The patient tolerated the procedure well. The bladder was drained. The cystoscope was removed. The patient was returned to the supine position and taken to the recovery room awake in stable condition. Lemuel Hansen MD [facility] # [id number]
--- NOTE | 2017-11-22 05:13 | CP.PCM.DIS ---
<KarinaRola - Last Filed: 11/22/17 10:34> Provider - Provider Date of Admission: 11/20/17 21:10 Attending physician: Quan Oconnor MD Primary care physician: Ana M Almendarez MD Consults: Urology: Dr. Hansen Time Spent in preparation of Discharge (in minutes): 35 Hospital Course - Lab Results Lab Results: Most Recent Lab Values WBC 8.8 10^3/ul (4.5-11.0) D 11/21/17 06:20 RBC 4.67 10^6/uL (3.5-6.1) 11/21/17 06:20 Hgb 9.9 g/dL (12.0-16.0) L 11/21/17 06:20 Hct 30.9 % (36.0-48.0) L 11/21/17 06:20 MCV 66.2 fl (80.0-105.0) L 11/21/17 06:20 MCH 21.2 pg (25.0-35.0) L 11/21/17 06:20 MCHC 32.0 g/dl (31.0-37.0) 11/21/17 06:20 RDW 16.7 % (11.5-14.5) H 11/21/17 06:20 Plt Count 269 10^3/uL (120.0-450.0) 11/21/17 06:20 MPV 9.5 fl (7.0-11.0) 11/21/17 06:20 Gran % 62.2 % (50.0-68.0) 11/20/17 19:22 Lymph % (Auto) 21.1 % (22.0-35.0) L 11/20/17 19:22 [place] % (Auto) 7.4 % (1.0-6.0) H 11/20/17 19:22 Eos % (Auto) 8.8 % (1.5-5.0) H 11/20/17 19:22 Baso % (Auto) 0.5 % (0.0-3.0) 11/20/17 19:22 Gran # 8.85 (1.4-6.5) H 11/20/17 19:22 Lymph # (Auto) 3.0 (1.2-3.4) 11/20/17 19:22 [place] # (Auto) 1.1 (0.1-0.6) H 11/20/17 19:22 Eos # (Auto) 1.3 (0.0-0.7) H 11/20/17 19:22 Baso # (Auto) 0.07 K/mm3 (0.0-2.0) 11/20/17 19:22 PT 12.0 SECONDS (9.4-12.5) 11/20/17 19:22 INR 1.05 (0.93-1.08) 11/20/17 19:22 pO2 44 mm/Hg (30-55) 11/20/17 19:22 VBG pH 7.32 (7.32-7.43) 11/20/17 19:22 VBG pCO2 52.0 (40-60) 11/20/17 19:22 VBG HCO3 26.8 mmol/l (21-28) 11/20/17 19:22 VBG Total CO2 28.4 mmol.L (22-28) H 11/20/17 19:22 VBG O2 Sat (Calc) 79.4 % (40-65) H 11/20/17 19:22 VBG Base Excess -0.1 mmol/L (0.0-2.0) L 11/20/17 19:22 VBG Potassium 6.1 mmol/L (3.6-5.2) H 11/20/17 19:22 Sodium 134.0 mmol/L (132-148) 11/20/17 19:22 Chloride 109.0 mmol/L (98-107) H 11/20/17 19:22 Glucose 120 mg/dl (65-105) H 11/20/17 19:22 Lactate 1.3 mmol/L (0.7-2.1) 11/20/17 19:22 FiO2 21.0 % 11/20/17 19:22 Sodium 140 mmol/L (132-148) 11/21/17 06:20 Potassium 4.2 mmol/L (3.6-5.0) 11/21/17 06:20 Chloride 105 mmol/L (98-107) 11/21/17 06:20 Carbon Dioxide 24 mmol/L (21-33) 11/21/17 06:20 Anion Gap 15 (10-20) 11/21/17 06:20 BUN 12 mg/dL (7-21) 11/21/17 06:20 Creatinine 1.1 mg/dl (0.7-1.2) 11/21/17 06:20 Est GFR ( Amer) 59 11/21/17 06:20 Est GFR (Non-Af Amer) 49 11/21/17 06:20 Random Glucose 97 mg/dL (70-110) 11/21/17 06:20 Calcium 8.6 mg/dL (8.4-10.5) 11/21/17 06:20 Magnesium 2.1 mg/dL (1.7-2.2) 11/21/17 06:20 Total Bilirubin 0.3 mg/dL (0.2-1.3) 11/21/17 06:20 AST 20 U/L (14-36) 11/21/17 06:20 ALT 32 U/L (7-56) 11/21/17 06:20 Alkaline Phosphatase 82 U/L (38-126) 11/21/17 06:20 Total Protein 6.4 g/dL (5.8-8.3) 11/21/17 06:20 Albumin 3.4 g/dL (3.0-4.8) 11/21/17 06:20 Globulin 3.0 gm/dL 11/21/17 06:20 Albumin/Globulin Ratio 1.2 (1.1-1.8) 11/21/17 06:20 Venous Blood Potassium 6.1 mmol/L (3.6-5.2) H 11/20/17 19:22 Urine Color Light yellow (YELLOW) 11/20/17 19:34 Urine Appearance Clear (CLEAR) 11/20/17 19:34 Urine pH 6.0 (4.7-8.0) 11/20/17 19:34 Ur Specific [place] 1.020 (1.005-1.035) 11/20/17 19:34 Urine Protein Trace mg/dL (<30 mg/dL) H 11/20/17 19:34 Urine Glucose (UA) Negative mg/dL (NEGATIVE) 11/20/17 19:34 Urine Ketones Trace mg/dL (NEGATIVE) H 11/20/17 19:34 Urine Blood Small (NEGATIVE) H 11/20/17 19:34 Urine Nitrate Negative (NEGATIVE) 11/20/17 19:34 Urine Bilirubin Negative (NEGATIVE) 11/20/17 19:34 Urine Urobilinogen 4.0 E.U./dL (<1 E.U./dL) H 11/20/17 19:34 Ur Leukocyte Esterase Small [place]/uL (NEGATIVE) H 11/20/17 19:34 Urine RBC 10 - 15 /hpf (0-2) 11/20/17 19:34 Urine WBC 5 - 10 /hpf (0-6) 11/20/17 19:34 Ur Epithelial Cells 10 - 12 /hpf (0-5) 11/20/17 19:34 Urine Bacteria Mod (NEG) 11/20/17 19:34 - Hospital Course Hospital Course: This is a 72yo female with PMH HTN, asthma who came is admitted for R sided nephrolithiasis with largest stone measuring 6.7mm on CT. Urology was consulted. Patient had ureteral stent placed. Patient's pain was controlled and she is tolerating diet. She will need to follow up with Dr. Hansen for further removal of ureteral calculi and eventual stent removal. Patient was educated on different foods and beverages that could cause stones. She will be placed on Augmentin for 3 days. She will follow up with Dr. Hansen this week or early next week as well as follow up with her PMD. She will continue her home medications. Patient verbalized and agreed with discharge plan. - Date & Time of H&P Date of H&P: 11/21/17 Time of H&P: 10:00 Discharge Exam - Head Exam Head Exam: ATRAUMATIC, NORMAL INSPECTION, NORMOCEPHALIC - Eye Exam Eye Exam: Normal appearance, PERRL Pupil Exam: NORMAL ACCOMODATION - ENT Exam ENT Exam: Mucous Membranes Moist - Respiratory Exam Respiratory Exam: Clear to PA & Lateral, NORMAL BREATHING PATTERN, UNREMARKABLE. absent: Rhonchi, Wheezes - Cardiovascular Exam Cardiovascular Exam: REGULAR RHYTHM, +S1, +S2. absent: Gallop, Rubs, Systolic Murmur - GI/Abdominal Exam GI & Abdominal Exam: Normal Bowel Sounds, Soft, Unremarkable. absent: Mass, Rebound, Rigid - Extremities Exam Extremities exam: normal inspection - Back Exam Back exam: absent: CVA tenderness (R) - Neurological Exam Neurological exam: Alert, CN II-XII Intact, Oriented x3 - Psychiatric Exam Psychiatric exam: Normal Affect, Normal Mood - Skin Skin Exam: Dry, Intact, Normal Color, Warm Discharge Plan - Discharge Medications Prescriptions: Amoxicillin/Potassium Clav [Augmentin 500-125 Tablet] 1 each PO Q12 #6 tablet - Follow Up Plan Condition: GOOD Disposition: HOME/ ROUTINE Instructions: Kidney Stones (DC) Additional Instructions: 1. Avoid cranberry and pomegranate juice. 2. Follow up with Dr. Hansen either this week or early next week. 3. Continue home medications 4. Complete antibiotics for 3 days. 5. Drink plenty of water. Referrals: Ana M Almendarez MD [Primary Care Provider] - Lemuel Hansen MD [Staff Provider] - <Quan Oconnor - Last Filed: 11/22/17 23:27> Provider - Provider Date of Admission: 11/20/17 21:10 Attending physician: Quan Oconnor MD Primary care physician: Ana M Almendarez MD Hospital Course - Lab Results Lab Results: Most Recent Lab Values WBC 8.8 10^3/ul (4.5-11.0) D 11/21/17 06:20 RBC 4.67 10^6/uL (3.5-6.1) 11/21/17 06:20 Hgb 9.9 g/dL (12.0-16.0) L 11/21/17 06:20 Hct 30.9 % (36.0-48.0) L 11/21/17 06:20 MCV 66.2 fl (80.0-105.0) L 11/21/17 06:20 MCH 21.2 pg (25.0-35.0) L 11/21/17 06:20 MCHC 32.0 g/dl (31.0-37.0) 11/21/17 06:20 RDW 16.7 % (11.5-14.5) H 11/21/17 06:20 Plt Count 269 10^3/uL (120.0-450.0) 11/21/17 06:20 MPV 9.5 fl (7.0-11.0) 11/21/17 06:20 Gran % 62.2 % (50.0-68.0) 11/20/17 19:22 Lymph % (Auto) 21.1 % (22.0-35.0) L 11/20/17 19: [place] % (Auto) 7.4 % (1.0-6.0) H 11/20/17 19: Eos % (Auto) 8.8 % (1.5-5.0) H 11/20/17 19: Baso % (Auto) 0.5 % (0.0-3.0) 11/20/17: Gran # 8.85 (1.4-6.5) H 11/20/17 19: Lymph # (Auto) 3.0 (1.2-3.4) 11/20/17 19: [place] # (Auto) 1.1 (0.1-0.6) H 11/20/17 19: Eos # (Auto) 1.3 (0.0-0.7) H 11/20/17 19: Baso # (Auto) 0.07 K/mm3 (0.0-2.0) 11/20/17: PT 12.0 SECONDS (9.4-12.5) 11/20/17: INR 1.05 (0.93-1.08) 11/20/17: pO2 44 mm/Hg (30-55) 11/20/17: VBG pH 7.32 (7.32-7.43) 11/20/17 19: VBG pCO2 52.0 (40-60) 11/20/17 19: VBG HCO3 26.8 mmol/l (21-28) 11/20/17: VBG Total CO2 28.4 mmol.L (22-28) H 11/20/17 19: VBG O2 Sat (Calc) 79.4 % (40-65) H 11/20/17 19: VBG Base Excess -0.1 mmol/L (0.0-2.0) L 11/20/17 19: VBG Potassium 6.1 mmol/L (3.6-5.2) H 11/20/17 19:22 Sodium 134.0 mmol/L (132-148) 11/20/17 19: Chloride 109.0 mmol/L (98-107) H 11/20/17 19:22 Glucose 120 mg/dl (65-105) H 11/20/17 19:22 Lactate 1.3 mmol/L (0.7-2.1) 11/20/17 19:22 FiO2 21.0 % 11/20/17 19:22 Sodium 140 mmol/L (132-148) 11/21/17 06:20 Potassium 4.2 mmol/L (3.6-5.0) 11/21/17 06:20 Chloride 105 mmol/L (98-107) 11/21/17 06:20 Carbon Dioxide 24 mmol/L (21-33) 11/21/17 06:20 Anion Gap 15 (10-20) 11/21/17 06:20 BUN 12 mg/dL (7-21) 11/21/17 06:20 Creatinine 1.1 mg/dl (0.7-1.2) 11/21/17 06:20 Est GFR ( Amer) 59 11/21/17 06:20 Est GFR (Non-Af Amer) 49 11/21/17 06:20 Random Glucose 97 mg/dL (70-110) 11/21/17 06:20 Calcium 8.6 mg/dL (8.4-10.5) 11/21/17 06:20 Magnesium 2.1 mg/dL (1.7-2.2) 11/21/17 06:20 Total Bilirubin 0.3 mg/dL (0.2-1.3) 11/21/17 06:20 AST 20 U/L (14-36) 11/21/17 06:20 ALT 32 U/L (7-56) 11/21/17 06:20 Alkaline Phosphatase 82 U/L (38-126) 11/21/17 06:20 Total Protein 6.4 g/dL (5.8-8.3) 11/21/17 06:20 Albumin 3.4 g/dL (3.0-4.8) 11/21/17 06:20 Globulin 3.0 gm/dL 11/21/17 06:20 Albumin/Globulin Ratio 1.2 (1.1-1.8) 11/21/17 06:20 Venous Blood Potassium 6.1 mmol/L (3.6-5.2) H 11/20/17 19:22 Urine Color Light yellow (YELLOW) 11/20/17 19:34 Urine Appearance Clear (CLEAR) 11/20/17 19:34 Urine pH 6.0 (4.7-8.0) 11/20/17 19:34 Ur Specific [place] 1.020 (1.005-1.035) 11/20/17 19:34 Urine Protein Trace mg/dL (<30 mg/dL) H 11/20/17 19:34 Urine Glucose (UA) Negative mg/dL (NEGATIVE) 11/20/17 19:34 Urine Ketones Trace mg/dL (NEGATIVE) H 11/20/17 19:34 Urine Blood Small (NEGATIVE) H 11/20/17 19:34 Urine Nitrate Negative (NEGATIVE) 11/20/17 19:34 Urine Bilirubin Negative (NEGATIVE) 11/20/17 19:34 Urine Urobilinogen 4.0 E.U./dL (<1 E.U./dL) H 11/20/17 19:34 Ur Leukocyte Esterase Small [place]/uL (NEGATIVE) H 11/20/17 19:34 Urine RBC 10 - 15 /hpf (0-2) 11/20/17 19:34 Urine WBC 5 - 10 /hpf (0-6) 11/20/17 19:34 Ur Epithelial Cells 10 - 12 /hpf (0-5) 11/20/17 19:34 Urine Bacteria Mod (NEG) 11/20/17 19:34 - Hospital Course Hospital Course: Pt seen and examined. I have reviewed the note of the medical csr and agree with it. I have discussed the assessment and plan with the resident. I have reviewed the patient's labs and medications. Pt with R kidney stone. She is comfortable and in no pain. She will be given Abx and discharged home. I did let her PMD - Dr Almendarez know about the stent that was placed.
[2017-11-22 08:16] VITALS: BP 134/71; PULSE 84; RESP 18; TEMP 99.2; O2SAT 94
[2017-11-22] MEDS: Tiotropium 18 mcg Cap For Inhalation IH SCH (09:41)
== END 2017-11-22 12:01 | disposition home or self-care (01) | DRG 694 ==
LOC: ED 18:22 → ERH 21:10 → 3RSO 23:14
PROVIDERS: ADMIT Internal Medicine Nephrology; ATTEND Internal Medicine Nephrology
PROC: BT1D1ZZ Fluoroscopy of Right Kidney, Ureter and Bladder using Low Osmolar Contrast (ICD-10-PCS; 2017-11-21)
PROC: 0T768DZ Dilation of Right Ureter with Intraluminal Device, Via Natural or Artificial Opening Endoscopic (ICD-10-PCS; principal; 2017-11-21 12:30)
DX: N13.2 Hydronephrosis with renal and ureteral calculous obstruction (principal); J44.9 Chronic obstructive pulmonary disease, unspecified; I10 Essential (primary) hypertension; K76.89 Other specified diseases of liver; Z87.891 Personal history of nicotine dependence

== ENCOUNTER 2018-01-04 07:17 | Day surgery (SDC) | payer MEDICARE, BC ==
[2018-01-04] MEDS ORDERED: Lactated Ringer's 1,000 ML IV SCH (07:45)
[2018-01-04] MEDS ORDERED: Propofol 10 mg/ml Inj (20 ML) ONE ×2 (07:47→08:33)
[2018-01-04] MEDS ORDERED: cefTRIAXone 1 GM in NS 100 ML BAG IVPB ONE (08:30)
[2018-01-04] MEDS ORDERED: cefTRIAXone (Rocephin) 1 gm Inj ONE (08:33)
--- NOTE | 2018-01-04 10:19 | RAD ---
Date of service: 01/04/2018 PROCEDURE: Retrograde pyelogram HISTORY: R/O OBSTRUCTION COMPARISON: TECHNIQUE: Fluoroscopy was provided in the operating room. 30.8 seconds of fluoro time. Cumulative dose 10.26 mGy. 16 images submitted FINDINGS: The study shows removal of a right ureteral catheter. The right ureter and collecting system are unremarkable with no obstruction. IMPRESSION: As above
[2018-01-04 10:27] VITALS: RESP 18; O2SAT 94
[2018-01-04 10:51] VITALS: TEMP 97.7
[2018-01-04 11:39] VITALS: BP 126/59; PULSE 80
--- NOTE | 2018-01-04 12:41 | OP ---
PROCEDURE DATE: 01/04/2018 PREOPERATIVE DIAGNOSIS: Right ureteral calculi. POSTOPERATIVE DIAGNOSIS: Right ureteral calculi. PROCEDURE: A cystoscopy, removal of right ureteral stent, right retrograde pyelogram, right ureteroscopy. ATTENDING SURGEON: Lemuel Hansen MD. ANESTHESIA: General. SPECIMENS: There were none. DRAINS: There were none. COMPLICATIONS: There were none. OPERATIVE FINDINGS: After informed consent was obtained, the patient was taken to the operating room, placed on the operating table and anesthesia was administered. The patient was then placed in the dorsal lithotomy position and prepped and draped in the usual sterile fashion. The patient received IV antibiotics prior to the start of the procedure. A 22-[place] cystoscope was then passed into the patient's bladder under direct vision. A full survey inspection of bladder was then done, which revealed no papillary tumors or stones were noted. There was a ureteral stent noted exiting from the right ureteral orifice. The left ureteral orifice was visualized and was within normal limits. At this point, on fluoroscopy, the stent was visualized. There did not appear to be any large filling defects or calcifications noted alongside the stent. There was a small calcification adjacent to the mid ureter next to the stent, but it was difficult to see if this was with inside the ureter. At this point, the grasping forceps was passed. The stent was grasped at its distal limb and removed through the urethral meatus. The stent was then grasped at the urethral meatus and removed in its entirety. The stent was inspected. It appeared whole without any defects. The cystoscope was repassed. There was a large amount of edema noted surrounding the right ureteral orifice and inflammation from the stent. A 5-[place] open-ended ureteral catheter was passed through the cystoscope and guided into the right ureteral orifice. When inside the orifice, contrast was instilled into the system. Most of the contrast backflowed into the bladder and the ureteral catheter was then advanced further. The previously noted calcification appeared to be in the region of the mid ureter. There appeared to be some evidence of ureteritis on the retrograde pyelogram. There was no hydronephrosis or filling defects noted in the kidney. At this point, a sensor wire was obtained. It was passed through the open-ended ureteral catheter and advanced up into the kidney under fluoroscopic guidance. The open-ended ureteral catheter was then removed. The bladder was drained. The cystoscope was removed. A 7-[place] semi-rigid ureteroscope was then obtained. The ureteroscope was then passed into the bladder under direct vision. It was able to be guided into the ureteral orifice and advanced up the ureter under direct vision. There was inflammation of the ureter noted. The ureteroscope was able to be advanced proximally without difficulty as the ureter appeared moderately dilated. The ureteroscope was able to be advanced up into the upper ureter and into the renal pelvis without any difficulty. No stones were encountered. There were no ureteral tumors noted. There was moderate ureteritis and inflammation from the stent noted throughout the span of the ureter. At this point, the ureteroscope was withdrawn under direct vision. Again, no stones were encountered and the ureteroscope was removed from the operative field. At this point, the cystoscope was repassed with back loading the guidewire. The guidewire was then removed. The open-ended ureteral catheter was again passed. Further contrast was then put into the system and the open-ended ureteral catheter was then removed. On delayed fluoroscopic views, contrast was noted to be draining from the kidney down the ureter and into the bladder with no evidence of obstruction. At this point, the procedure was completed, the bladder was drained. The cystoscope was removed. The patient tolerated the procedure well and she was taken to the recovery room awake and in stable condition. Lemuel Hansen MD
== END 2018-01-04 12:10 | disposition home or self-care (01) ==
LOC: SDS 07:17
PROVIDERS: ATTEND Urology
DX: I10 Essential (primary) hypertension (principal); J45.909 Unspecified asthma, uncomplicated; Z88.2 Allergy status to sulfonamides; I25.10 Atherosclerotic heart disease of native coronary artery without angina pectoris; M19.90 Unspecified osteoarthritis, unspecified site; Z98.49 Cataract extraction status, unspecified eye; Z90.710 Acquired absence of both cervix and uterus
CPT/HCPCS: 52310; 74420; J0696; J2001; J2405; J2704; J3010; J7120

== ENCOUNTER 2018-02-11 19:16 | Inpatient (IN) | payer MEDICARE, BC ==
[2018-02-11 19:17] VITALS: BMI 29.7
[2018-02-11 20:05] LABS: BASO # 0.02 K/mm3 (0.0-2.0); BASO % 0.2 % (0.0-3.0); EOS # 0.1 (0.0-0.7); EOS % 0.6 % (1.5-5.0); GRAN # 8.81 (1.4-6.5); GRAN % 80.4 % (50.0-68.0); HEMOGLOBIN 10.7 g/dL (12.0-16.0); LYMPH # 1.3 (1.2-3.4); LYMPH % 12.1 % (22.0-35.0); MEAN CELL VOLUME 67.9 fl (80.0-105.0); MEAN CORPUSCULAR HEMOGLOBIN 21.6 pg (25.0-35.0); MEAN CORPUSCULAR HGB CONC 31.8 g/dl (31.0-37.0); MEAN PLATELET VOLUME 10.1 fl (7.0-11.0); MONO # 0.7 (0.1-0.6); MONO % 6.7 % (1.0-6.0); RBC 4.96 10^6/uL (3.5-6.1); RED CELL DISTRIBUTION WIDTH 17.8 % (11.5-14.5)
[2018-02-11 20:08] LABS: VENOUS BLOOD GAS BASE EXCESS -1.4 mmol/L (0.0-2.0); VENOUS BLOOD GAS PO2 43 mm/Hg (30-55); VENOUS BLOOD PH 7.25 (7.32-7.43)
[2018-02-11 20:13] LABS: PARTIAL THROMBOPLASTIN TIME 29.5 Seconds (25.1-36.5); PROTHROMBIN TIME 11.4 SECONDS (9.4-12.5)
[2018-02-11 20:36] LABS: ALB/GLOB RATIO 1.3 (1.1-1.8); ALBUMIN 3.8 g/dL (3.0-4.8); ALT/SGPT 27 U/L (7-56); AST/SGOT 21 U/L (14-36); BLOOD UREA NITROGEN 9 mg/dL (7-21); GFR NON-AFRICAN AMERICAN > 60
[2018-02-11 20:48] LABS: B-TYPE NATRIURETIC PEPTIDE 61.8 pg/mL (0-450); TROPONIN I < 0.01 ng/mL
[2018-02-11] MEDS ORDERED: Potassium Chloride 20 mEq ER Tab PO STA (20:51)
[2018-02-11] MEDS ORDERED: Albuterol-Ipratrop 3 mg / 0.5 (3 ml) UD IH STA (21:01)
--- NOTE | 2018-02-11 21:28 | ED PDOC ---
Arrival/HPI - General Chief Complaint: Respiratory Distress Time Seen by Provider: 02/11/18 19:18 Historian: Patient - History of Present Illness Narrative History of Present Illness (Text): 02/11/18 19:40 Edel Tapia is a 72 year old female, whose past medical history includes hypertension, asthma, and uterine fibroids s/p hysterectomy, who presents to the Emergency department complaining of shortness of breath for the past couple of days. Patient states symptoms worsened tonight and reports associated wheezing. Patient denies any fever, chills, chest pain, back pain, neck pain, headache, dizziness, or any other complaints. Contrary to triage note, patient did not receive IV Solu-medrol in the field. Symptom Onset: Gradual Symptom Course: Unchanged Activities at Onset: Light Context: Home Past Medical History - Provider Review Nursing Documentation Reviewed: Yes - Infectious Disease Hx of Infectious Diseases: None - Tetanus Immunization Tetanus Immunization: Unknown - Reproductive Menopause: Yes - Cardiac Hx Pacemaker: No - Pulmonary Hx Respiratory Disorders: Yes (home nebulizer machine) Hx Asthma: Yes Hx Bronchitis: Yes Hx Chronic Obstructive Pulmonary Disease (COPD): Yes Hx Pneumonia: Yes Other/Comment: recent sinus infection - Neurological Hx Paralysis: No - HEENT Hx Cataracts: Yes (b/l cat sx 2009) - Renal Hx Renal Disorder: No - Endocrine/Metabolic Hx Endocrine Disorders: No - Hematological/Oncological Hx Blood Transfusions: No - Integumentary Hx Dermatological Disorder: No - Musculoskeletal/Rheumatological Hx Musculoskeletal Disorders: No - Gastrointestinal Hx Gastrointestinal Disorders: No - Genitourinary/Gynecological Hx Genitourinary Disorders: No - Psychiatric Hx Emotional Abuse: No Hx Physical Abuse: No Hx Substance Use: No - Surgical History Hx Hysterectomy: Yes (2004) Other/Comment: sinus sx, bilat cataract, myomectomy x2 fibroid came back a third time pt decided to have hysterectomy in 2004, r knee arthoscopic and torn miniscus sx 08/2015 - Anesthesia Hx Anesthesia: Yes Hx Anesthesia Reactions: No Hx Malignant Hyperthermia: No - Suicidal Assessment Feels Threatened In Home Enviroment: No Family/Social History - Physician Review Nursing Documentation Reviewed: Yes Family/Social History: Unknown Family HX Smoking Status: Former Smoker Hx Alcohol Use: Yes (SOCIAL) Hx Substance Use: No Hx Substance Use Treatment: No Allergies/Home Meds Allergies/Adverse Reactions: Allergies Sulfa (Sulfonamide Antibiotics) Allergy (Verified 02/11/18 19:28) URTICARIA Home Medications: Home Meds Medication Instructions Recorded Confirmed RX: Albuterol HFA [Ventolin HFA 90 2 puff IH [id number] PRN 11/22/17 02/11/18 mcg/actuation (8 g)] RX: Tiotropium [Spiriva] 18 mcg IH DAILY 11/22/17 02/11/18 RX: amLODIPine [Norvasc] 10 mg PO DAILY 11/22/17 02/11/18 RX: Albuterol 0.042% [Albuterol 3 ml IH BID 12/20/17 02/11/18 0.042% Inhal Barbara (1.25mg/3ml) UD] Dulera 100 Mcg/5 Mcg Inhaler 2 inhaler PO BID 01/04/18 02/11/18 Review of Systems - Physician Review All systems were reviewed & negative as marked: Yes - Review of Systems Constitutional: Normal Eyes: Normal ENT: Normal Respiratory: SOB, Wheezing Cardiovascular: Normal. absent: Chest Pain Gastrointestinal: Normal. absent: Abdominal Pain, Diarrhea, Nausea, Vomiting Genitourinary Female: Normal. absent: Dysuria, Frequency, Hematuria, Urine Output Changes Musculoskeletal: Normal. absent: Back Pain, Neck Pain Skin: Normal. absent: Rash Neurological: Normal. absent: Headache, Dizziness Endocrine: Normal Hemo/Lymphatic: Normal Psychiatric: Normal Physical Exam Vital Signs Reviewed: Yes Vital Signs Temp Pulse Resp BP Pulse Ox 02/11/18 19:27 98.3 F 127 H 18 136/57 L 95 02/11/18 19:20 98.6 F 103 H 19 125/87 100 Temperature: Afebrile Blood Pressure: Normal Pulse: Regular Respiratory Rate: Normal Appearance: Positive for: Well-Appearing, Non-Toxic, Comfortable Pain Distress: None Mental Status: Positive for: Alert and Oriented X 3 - Systems Exam Head: Present: Atraumatic, Normocephalic Pupils: Present: PERRL Extroacular Muscles: Present: EOMI Conjunctiva: Present: Normal Mouth: Present: Moist Mucous Membranes Neck: Present: Normal Range of Motion Respiratory/Chest: Present: Wheezes. No: Respiratory Distress, Accessory Muscle Use Cardiovascular: Present: Regular Rate and Rhythm, Normal S1, S2. No: Murmurs Abdomen: No: Tenderness, Distention, Peritoneal Signs Back: Present: Normal Inspection Upper Extremity: Present: Normal Inspection. No: Cyanosis, Edema Lower Extremity: Present: Normal Inspection. No: Edema Neurological: Present: GCS=15, CN II-XII Intact, Speech Normal Skin: Present: Warm, Dry, Normal Color. No: Rashes Psychiatric: Present: Alert, Oriented x 3, Normal Insight, Normal Concentration Medical Decision Making ED Course and Treatment: 02/11/18 19:40 Impression: 72 year old female complaining of shortness of breath and wheezing since yesterday, worsened today. Plan: -- EKG -- Chest X-ray -- Labs, cardiac enzymes, BNP, VBG, blood cultures -- Duoneb -- K-Dur -- Reassess and disposition Prior Visits: Notes and results from previous visits were reviewed. On 11/20/2017, patient was seen in the Emergency department for right flank pain radiating to her groin. Pt was admitted to the hospital for further evaluation Progress Notes: Contrary to triage note, patient did not receive IV Solu-medrol in the field. Reviewed EKG, sinus tachycardia at 125 bpm. Non-specific ST/T wave changes. 02/11/18 22:08 Chest X-ray reviewed, shows no acute processes. 02/11/18 22:[address] Oconnor, who is aware and agrees with plan. Accepts pt in to his service. Pt will go to Telemetry observation for asthma without status asthmaticus. - Lab Interpretations Lab Results: 02/11/18 19:51 02/11/18 20:17 Lab Results 02/11/18 20:17: Sodium 137, Chloride 104, Potassium 3.5 L, Carbon Dioxide 25, Anion Gap 11, BUN 9, Creatinine 0.6 L, Est GFR ( Amer) > 60, Est GFR (Non-Af Amer) > 60, Random Glucose 127 H, Calcium 9.0, Magnesium 1.8, Total Bilirubin 0.3, AST 21, ALT 27, Alkaline Phosphatase 88, Lactate Dehydrogenase 409, Total Creatine Kinase 120, Troponin I < 0.01, NT-Pro-B Natriuret Pep 61.8, Total Protein 6.9, Albumin 3.8, Globulin 3.0, Albumin/Globulin Ratio 1.3 02/11/18 19:51: pO2 43, VBG pH 7.25 L, VBG pCO2 62.0 H, VBG HCO3 27.2, VBG Total CO2 29.1 H, VBG O2 Sat (Calc) 76.0 H, VBG Base Excess -1.4 L, VBG Potassium 4.7, Sodium 136.0, Chloride 105.0, Glucose 129 H, Lactate 3.0 H, FiO2 21.0, Venous Blood Potassium 4.7 02/11/18 19:51: PT 11.4, INR 1.00, APTT 29.5 02/11/18 19:51: WBC 11.0, RBC 4.96, Hgb 10.7 L, Hct 33.7 L, MCV 67.9 L, MCH 21.6 L, MCHC 31.8, RDW 17.8 H, Plt Count 282, MPV 10.1, Gran % 80.4 H, Lymph % (Auto) 12.1 L, [place] % (Auto) 6.7 H, Eos % (Auto) 0.6 L, Baso % (Auto) 0.2, Gran # 8.81 H, Lymph # (Auto) 1.3, [place] # (Auto) 0.7 H, Eos # (Auto) 0.1, Baso # (Auto) 0.02 I have reviewed the lab results: Yes - RAD Interpretation Radiology Orders: 02/11/18 19:42 CHEST PORTABLE [RAD] Stat [place] Baler: ED Physician - EKG Interpretation Interpreted by ED Physician: Yes Type: 12 lead EKG - Medication Orders Current Medication Orders: Discontinued Medications Albuterol/Ipratropium (Duoneb 3 Mg/0.5 Mg (3 Ml) Ud) 3 ml IH STAT STA Stop: 02/11/18 21:02 Last Admin: 02/11/18 21:18 Dose: 3 ml Potassium Chloride (K-Dur 20 Meq Er Tab) 40 meq PO STAT STA Stop: 02/11/18 20:52 Last Admin: 02/11/18 20:55 Dose: 40 meq - Scribe Statement The provider has reviewed the documentation as recorded by the Paulie Martinez Provider Scribe Attestation: All medical record entries made by the Scribe were at my direction and personally dictated by me. I have reviewed the chart and agree that the record accurately reflects my personal performance of the history, physical exam, medical decision making, and the department course for this patient. I have also personally directed, reviewed, and agree with the discharge instructions and disposition. Disposition/Present on Arrival - Present on Arrival Any Indicators Present on Arrival: No History of DVT/PE: No History of Uncontrolled Diabetes: No Urinary Catheter: No History of Decub. Ulcer: No History Surgical Site Infection Following: None - Disposition Have Diagnosis and Disposition been Completed?: Yes Diagnosis: Asthma exacerbation Disposition: HOSPITALIZED Disposition Time: 23:00 Condition: FAIR
[2018-02-11] MEDS ORDERED: levoFLOXacin 250 mg in D5W 250 MG/50 ML BAG IVPB STA (22:51)
[2018-02-11] MEDS ORDERED: Albuterol-Ipratrop 3 mg / 0.5 (3 ml) UD IH PRN (23:00)
[2018-02-11] MEDS ORDERED: Sodium Chloride 0.9% 1,000 ML IV STA (23:00)
[2018-02-11 23:36] LABS: VENOUS BLOOD GAS BASE EXCESS -0.4 mmol/L (0.0-2.0); VENOUS BLOOD GAS PO2 82 mm/Hg (30-55); VENOUS BLOOD PH 7.34 (7.32-7.43)
[2018-02-12] MEDS ORDERED: Albuterol-Ipratrop 3 mg / 0.5 (3 ml) UD IH STA (00:33)
[2018-02-12] MEDS ORDERED: Albuterol-Ipratrop 3 mg / 0.5 (3 ml) UD IH PRN (06:55)
[2018-02-12] MEDS: Budesonide 0.5 mg/2 ml Inhal Susp UD IH SCH ×2 (07:20→20:20)
[2018-02-12] MEDS: Albuterol-Ipratrop 3 mg / 0.5 (3 ml) UD IH SCH ×3 (07:20→20:20)
--- NOTE | 2018-02-12 07:50 | CP.PCM.HP ---
<Adelita Maxwell - Last Filed: 02/12/18 13:26> History of Present Illness - History of Present Illness History of Present Illness: PGY-3 H&P fpr Dr. Oconnor's service 72 year old female with PMH of hypertension, asthma, and uterine fibroids s/p hysterectomy, who presented to the Emergency department complaining of shortness of breath for the past couple of days. Patient states that last week she went on a overnight trip to [place] with a friend who had a cough and runny nose. Patient states that 3 days ago she started feeling ill with dry cough, sob, sore throat. She states that the sore throat lasted 1 days and her cough gradually become productive. She states that she was using her nebulizer treatment multiple times per day but continued to have SOB with wheezing and her symptoms worsened. Patient reports a fever of 100.7 at home but none since admission. Patient denies any chills, chest pain, back pain, neck pain, headache, dizziness, n/v abd pain, urinary symptoms, muscle or joint pain, rashes or any other complaints. PMH: HTN, asthma PSH: hysterectomy, cataract surgery social history: former smoker, denies alcohol or drug use Allergies: Sulfa- rash Family history: Mom- of old age (89), bronchitis Present on Admission - Present on Admission Any Indicators Present on Admission: No Review of Systems - Review of Systems All systems: reviewed and no additional remarkable complaints except Past Patient History - Infectious Disease Hx of Infectious Diseases: None - Tetanus Immunizations Tetanus Immunization: Unknown - Past Social History Smoking Status: Former Smoker - CARDIAC Hx Pacemaker: No - PULMONARY Hx Respiratory Disorders: Yes (home nebulizer machine) Hx Asthma: Yes Hx Bronchitis: Yes Hx Chronic Obstructive Pulmonary Disease (COPD): Yes Hx Pneumonia: Yes Other/Comment: recent sinus infection - NEUROLOGICAL Hx Paralysis: No - HEENT Hx Cataracts: Yes (b/l cat sx 2009) - RENAL Hx Chronic Kidney Disease: No - ENDOCRINE/METABOLIC Hx Endocrine Disorders: No - HEMATOLOGICAL/ONCOLOGICAL Hx Blood Transfusions: No - INTEGUMENTARY Hx Dermatological Problems: No - MUSCULOSKELETAL/RHEUMATOLOGICAL Hx Musculoskeletal Disorders: No - GASTROINTESTINAL Hx Gastrointestinal Disorders: No - GENITOURINARY/GYNECOLOGICAL Hx Genitourinary Disorders: No - PSYCHIATRIC Hx Emotional Abuse: No Hx Physical Abuse: No Hx Substance Use: No - SURGICAL HISTORY Hx Hysterectomy: Yes (2004) Other/Comment: sinus sx, bilat cataract, myomectomy x2 fibroid came back a third time pt decided to have hysterectomy in 2004, r knee arthoscopic and torn miniscus sx 08/2015 - ANESTHESIA Hx Anesthesia: Yes Hx Anesthesia Reactions: No Hx Malignant Hyperthermia: No Meds Allergies/Adverse Reactions: Allergies Allergy/AdvReac Type Severity Reaction Status Date / Time Sulfa (Sulfonamide Allergy URTICARIA Verified 02/11/18 19:28 Antibiotics) Physical Exam - Constitutional Appears: No Acute Distress - Head Exam Head Exam: ATRAUMATIC, NORMAL INSPECTION, NORMOCEPHALIC - Eye Exam Eye Exam: EOMI, Normal appearance. absent: Conjunctival injection, Periorbital swelling, Scleral icterus Pupil Exam: NORMAL ACCOMODATION - ENT Exam ENT Exam: Mucous Membranes Moist, Normal External Ear Exam. absent: Mucous Membranes Dry - Neck Exam Neck exam: Positive for: Full Rom, Normal Inspection. Negative for: Meningismus, Tenderness - Respiratory Exam Respiratory Exam: Rhonchi, Wheezes, NORMAL BREATHING PATTERN. absent: Accessory Muscle Use, Chest Wall Tenderness, Decreased Breath Sounds, Respiratory Distress - Cardiovascular Exam Cardiovascular Exam: Tachycardia, REGULAR RHYTHM, +S1, +S2. absent: Bradycardia, Diastolic murmur, Systolic Murmur - GI/Abdominal Exam GI & Abdominal Exam: Normal Bowel Sounds, Soft. absent: Diminished Bowel Sounds, Distended, Firm, Guarding, Mass, Tenderness - Extremities Exam Extremities exam: Positive for: normal inspection. Negative for: calf tenderness, pedal edema, tenderness - Neurological Exam Neurological exam: Alert, CN II-XII Intact, Oriented x3 - Psychiatric Exam Psychiatric exam: Normal Affect, Normal Mood Additional comments: no anxiety, agitation - Skin Skin Exam: Dry, Intact, Normal Color, Warm Results - Vital Signs Recent Vital Signs: Last Vital Signs Temp 98.9 F 02/12/18 06:00 Pulse 104 H 02/12/18 06:00 Resp 22 02/12/18 06:00 BP 124/67 02/12/18 06:00 Pulse Ox 97 02/12/18 06:00 - Labs Result Diagrams: 02/11/18 19:51 02/11/18 20:17 Labs: Laboratory Results - last 24 hr 02/11/18 02/11/18 02/11/18 19:51 19:51 19:51 WBC 11.0 RBC 4.96 Hgb 10.7 L Hct 33.7 L MCV 67.9 L MCH 21.6 L MCHC 31.8 RDW 17.8 H Plt Count 282 MPV 10.1 Gran % 80.4 H Lymph % (Auto) 12.1 L [place] % (Auto) 6.7 H Eos % (Auto) 0.6 L Baso % (Auto) 0.2 Gran # 8.81 H Lymph # (Auto) 1.3 [place] # (Auto) 0.7 H Eos # (Auto) 0.1 Baso # (Auto) 0.02 PT 11.4 INR 1.00 APTT 29.5 pO2 43 VBG pH 7.25 L VBG pCO2 62.0 H VBG HCO3 27.2 VBG Total CO2 29.1 H VBG O2 Sat (Calc) 76.0 H VBG Base Excess -1.4 L VBG Potassium 4.7 Sodium 136.0 Chloride 105.0 Glucose 129 H Lactate 3.0 H FiO2 21.0 Potassium Carbon Dioxide Anion Gap BUN Creatinine Est GFR ( Amer) Est GFR (Non-Af Amer) Random Glucose Calcium Magnesium Total Bilirubin AST ALT Alkaline Phosphatase Lactate Dehydrogenase Total Creatine Kinase Troponin I NT-Pro-B Natriuret Pep Total Protein Albumin Globulin Albumin/Globulin Ratio Venous Blood Potassium 4.7 Influenza Typ A,B (EIA) 02/11/18 02/11/18 02/11/18 20:17 22:00 23:26 WBC RBC Hgb Hct MCV MCH MCHC RDW Plt Count MPV Gran % Lymph % (Auto) [place] % (Auto) Eos % (Auto) Baso % (Auto) Gran # Lymph # (Auto) [place] # (Auto) Eos # (Auto) Baso # (Auto) PT INR APTT pO2 82 H VBG pH 7.34 VBG pCO2 48.0 VBG HCO3 25.9 VBG Total CO2 27.4 VBG O2 Sat (Calc) 98.1 H VBG Base Excess -0.4 L VBG Potassium 3.7 Sodium 137 136.0 Chloride 104 105.0 Glucose 171 H Lactate 2.1 FiO2 21.0 Potassium 3.5 L Carbon Dioxide 25 Anion Gap 11 BUN 9 Creatinine 0.6 L Est GFR ( Amer) > 60 Est GFR (Non-Af Amer) > 60 Random Glucose 127 H Calcium 9.0 Magnesium 1.8 Total Bilirubin 0.3 AST 21 ALT 27 Alkaline Phosphatase 88 Lactate Dehydrogenase 409 Total Creatine Kinase 120 Troponin I < 0.01 NT-Pro-B Natriuret Pep 61.8 Total Protein 6.9 Albumin 3.8 Globulin 3.0 Albumin/Globulin Ratio 1.3 Venous Blood Potassium 3.7 Influenza Typ A,B (EIA) Negative for flu a/b Assessment & Plan - Assessment and Plan (Free Text) Assessment: - asthma exacerbation - HTN Plan: Labs and imaging reviewed. Pulmonary was consulted. Patient will be started on Duonebs q6 scheduled and q2 prn as well as pulmicort and solu0 medrol 40 q8. Patient was also started on levofloxacin. Will continue home medications for HTN, norvasc. Discontinue telemetry. case reviewed and discussed with Dr. Oconnor <Quan Oconnor S - Last Filed: 02/12/18 21:18> Results - Vital Signs Recent Vital Signs: Last Vital Signs Temp 98.8 F 02/12/18 14:00 Pulse 107 H 02/12/18 14:00 Resp 18 02/12/18 14:00 BP 107/57 L 02/12/18 14:00 Pulse Ox 94 L 02/12/18 14:00 - Labs Result Diagrams: 02/11/18 19:51 02/11/18 20:17 Labs: Laboratory Results - last 24 hr 02/11/18 02/11/18 22:00 23:26 pO2 82 H VBG pH 7.34 VBG pCO2 48.0 VBG HCO3 25.9 VBG Total CO2 27.4 VBG O2 Sat (Calc) 98.1 H VBG Base Excess -0.4 L VBG Potassium 3.7 Sodium 136.0 Chloride 105.0 Glucose 171 H Lactate 2.1 FiO2 21.0 Venous Blood Potassium 3.7 Influenza Typ A,B (EIA) Negative for flu a/b Assessment & Plan - Assessment and Plan (Free Text) Plan: Pt seen and examined. I have reviewed the note of the medical office technologist and agree with it. I have discussed the assessment and plan with the resident. I have reviewed the patient's labs and medications. Pt with acute Asthma. She has been placed on Duoneb and Solumedrol. She is going to be on Levaquin for Abx. I did leave a message for her PMD- Dr Almendarez to update her. Pt will be on Norvasc for HTN. Will discontinue telemetry.
--- NOTE | 2018-02-12 08:21 | CON ---
DATE: 02/12/2018 PULMONARY CONSULTATION REASON FOR CONSULTATION: Asthma. REFERRING PHYSICIAN: Dr. Oconnor HISTORY OF PRESENT ILLNESS: The patient is a 72-year-old female, with past medical history significant for asthma, recurrent bronchitis, uterine fibroids, hypertension, who presents to [facility] with a 3-day history of worsening shortness of breath at rest, dyspnea on exertion, cough, and sputum production. There is no history of chest pain, coughing up of blood, or chest pain - made worse with deep respirations. There is no history of temperatures, chills or infectious exposure. There is no history of night sweats, weight loss or appetite change prior to the above events. No history of leg or calf pains. No history of syncope or diaphoresis. No history of recent travel or trauma. REVIEW OF SYSTEMS: No history of nausea, vomiting or diarrhea. No acute urinary symptoms. No new neurologic or musculoskeletal complaints. Rest of the review of systems is negative. ALLERGIES: TO SULFONAMIDE ANTIBIOTICS. SOCIAL HISTORY: Positive for tobacco many years ago. No alcohol. FAMILY HISTORY: No inheritable diseases. HOME MEDICATIONS: Include Spiriva, Dulera, albuterol HFA and Norvasc. PHYSICAL EXAMINATION: GENERAL: The patient is mildly short of breath, but in no acute distress. She is not using accessory muscles for breathing. VITAL SIGNS: Temperature is 98.9, pulse on monitor is 98, respiratory rate 20/22, blood pressure 124/67. Oxygen saturation on nasal cannula is 97%. HEENT: Normocephalic, atraumatic. No JVD. CARDIOVASCULAR: Systolic ejection murmur at the lower left sternal border. No S3 gallop. LUNGS: Decreased breath sounds at the bases. Mvyc-vt-yehadxue rhonchi and wheezing bilaterally. EXTREMITIES: Mild edema. No cyanosis, no clubbing. Calves are nontender to palpation. GI: Abdomen is soft, nontender and nondistended. Bowel sounds are positive. SKIN: No acute rash. NEUROLOGIC: Exam limited at the present time. PERTINENT LABORATORY DATA: Chest x-ray was done and reviewed. Official results are pending. There are no new or significant changes noted on the most recent x-ray. CBC: White count 11.0K, hemoglobin 10.7, hematocrit 33.7, platelets of 282,000. Complete metabolic profile: Potassium 3.5, glucose 127. Rest of the metabolic profile is within normal limits. Initial lactate 3.0. Subsequent lactate 2.1. IMPRESSION: 1. Acute bronchitis. 2. Asthma. 3. Mild anemia. 4. Hypertension. PLAN: The case was discussed with the night nurse at length. I have also reviewed the chart at length, and discussed the case with the patient at length. The patient presents to [facility] with a 3-day history of worsening pulmonary symptoms. I did review the chest x-ray as above. The chest x-ray does not show any new or significant changes. I have also reviewed the laboratory data. There is no leukocytosis present. There is a mildly high lactate(decreased) - probably secondary to respiratory muscle fatigue. Again, there is no history of fevers. There is no leukocytosis. On physical exam, the patient is in moderate bronchospasm. I will start the patient on moderate-dose intravenous steroids and frequent nebulizer treatments. I will also add inhaled Pulmicort. The patient is on Dulera as an outpatient. Lastly, secondary to her age and above diagnoses, I will start oral antibiotic therapy. The patient does state to feeling much better this morning, and is clinically improved. Additional pulmonary intervention will be based on the clinical status of the patient. I will discuss the above with the attending physician. Thank you very much for this pulmonary consultation. Lion Patel MD GERI
[2018-02-12] MEDS: MethylPREDNISolone 40 mg Vial IVP SCH ×3 (08:45→23:20)
--- NOTE | 2018-02-12 09:52 | RAD ---
Date of service: 02/11/2018 HISTORY: sob COMPARISON: 12/20/2017 FINDINGS: LUNGS: No active pulmonary disease. PLEURA: No significant pleural effusion identified, no pneumothorax apparent. CARDIOVASCULAR: Mild cardiomegaly OSSEOUS STRUCTURES: No significant abnormalities. VISUALIZED UPPER ABDOMEN: Normal. OTHER FINDINGS: None. IMPRESSION: No active disease.
[2018-02-12] MEDS: levoFLOXacin 500 MG TAB PO SCH (11:01)
--- NOTE | 2018-02-12 11:08 | CARD ---
APPROVED REPORT Date of service: 02/11/2018 EKG Measurement Heart [id number] <Conclusion> Sinus tachycardia Possible Left atrial enlargement rSr Pattern V1-V2.
[2018-02-13] MEDS: MethylPREDNISolone 40 mg Vial IVP SCH ×4 (06:26→23:48)
[2018-02-13 07:18] LABS: HEMOGLOBIN 11.1 g/dL (12.0-16.0); MEAN CELL VOLUME 67.4 fl (80.0-105.0); MEAN CORPUSCULAR HEMOGLOBIN 21.3 pg (25.0-35.0); MEAN CORPUSCULAR HGB CONC 31.6 g/dl (31.0-37.0); MEAN PLATELET VOLUME 9.9 fl (7.0-11.0); RBC 5.21 10^6/uL (3.5-6.1); RED CELL DISTRIBUTION WIDTH 17.4 % (11.5-14.5); WHITE BLOOD COUNT 20.3 10^3/ul (4.5-11.0)
[2018-02-13] MEDS: Budesonide 0.5 mg/2 ml Inhal Susp UD IH SCH ×2 (07:25→20:20)
[2018-02-13] MEDS: Albuterol-Ipratrop 3 mg / 0.5 (3 ml) UD IH SCH ×3 (07:25→20:16)
[2018-02-13 07:45] LABS: BLOOD UREA NITROGEN 15 mg/dL (7-21); CALCIUM 9.7 mg/dL (8.4-10.5); GFR NON-AFRICAN AMERICAN > 60
--- NOTE | 2018-02-13 07:52 | PN ---
DATE: 02/13/2018 PULMONARY NOTE DICTATION SUBJECTIVE: The patient appears comfortable this morning. She is not short of breath at rest. PHYSICAL EXAMINATION: VITAL SIGNS: Last temperature recorded is 98.4, pulse this morning is 88, respiratory rate 18/20, blood pressure 137/64. Oxygen saturation on nasal cannula is 99%. HEENT: Normocephalic, atraumatic. No JVD. CARDIOVASCULAR: Systolic ejection murmur at the lower left sternal border. No S3 gallop. LUNGS: Improved breath sounds at the bases. Less rhonchi. Less wheezing. EXTREMITIES: Mild edema. No cyanosis, no clubbing. Calves are nontender to palpation. GI: Abdomen is soft, nontender and nondistended. Bowel sounds are positive. SKIN: No acute rash. NEUROLOGIC: Exam limited at the present time. IMPRESSION: 1. Acute bronchitis. 2. Asthma. 3. Mild anemia. 4. Hypertension. PLAN: The patient appears comfortable this morning. She is not short of breath at rest. She does state to feeling much better overall. I did discuss the case with the night nurse at length. The night nurse stated that the patient had a very good night. On physical exam, there is certainly less bronchospasm noted. In addition, the oxygen saturation on nasal cannula is now 99%. I will continue the current nebulizer treatments and decrease the intravenous steroids this morning. The patient remains on oral antibiotic therapy. There are no temperatures noted. There is no leukocytosis. Repeat a.m. labs are pending. Clinical status of the patient is definitely improved - compared to her initial status. The patient is reminded to be out of bed as much as possible today. I will discuss the above with Dr. Oconnor. Lion Patel MD MTDD
[2018-02-13] MEDS: POLYETHYLENE GLYCOL 3350 17 GM/Dose PACKET PO SCH ×2 (09:36→17:24)
[2018-02-13] MEDS: levoFLOXacin 500 MG TAB PO SCH (09:36)
--- NOTE | 2018-02-13 09:36 | CP.PCM.PN ---
<Adelita Maxwell - Last Filed: 02/13/18 10:52> Subjective - Date & Time of Evaluation Date of Evaluation: 02/13/18 Time of Evaluation: 07:00 - Subjective Subjective: PGY-3 Medicine progress note for Dr. Oconnor's service Patient seen and examined at bedside. No acute distres. Patient states that her breathing and cough has improved. She denies chest pain, abd pain, headache, dizziness. She reports constipation. Objective - Vital Signs/Intake and Output Vital Signs (last 24 hours): Temp Pulse Resp BP Pulse Ox 97.7 F 101 H 20 110/60 98 02/13/18 06:00 02/13/18 06:00 02/13/18 06:00 02/13/18 06:00 02/13/18 06:00 Intake and Output: 02/13/18 02/13/18 06:59 18:59 Intake Total 120 Balance 120 - Medications Medications: Current Medications Acetaminophen (Tylenol 325mg Tab) 650 mg PO Q4H PRN PRN Reason: Fever >100.5 F Albuterol/Ipratropium (Duoneb 3 Mg/0.5 Mg (3 Ml) Ud) 3 ml IH [id number] [facility] Last Admin: 02/13/18 07:25 Dose: 3 ml Albuterol/Ipratropium (Duoneb 3 Mg/0.5 Mg (3 Ml) Ud) 3 ml IH Q2H PRN PRN Reason: Shortness of Breath Amlodipine Besylate (Norvasc) 10 mg PO DAILY [facility] Last Admin: 02/12/18 11:02 Dose: 10 mg Budesonide (Pulmicort Respules) 0.5 mg IH [id number] [facility] Last Admin: 02/13/18 07:25 Dose: 0.5 mg Levofloxacin (Levaquin) 500 mg PO DAILY [facility]; Protocol Last Admin: 02/12/18 11:01 Dose: 500 mg Methylprednisolone (Solu-Medrol) 30 mg IVP Q8 [facility] Last Admin: 02/13/18 08:03 Dose: Not Given Polyethylene Glycol (Miralax) 17 gm PO BID [facility] - Labs Labs: 02/13/18 06:45 02/13/18 06:45 PT 11.4 SECONDS (9.4-12.5) 02/11/18 19:51 INR 1.00 02/11/18 19:51 APTT 29.5 Seconds (25.1-36.5) 02/11/18 19:51 - Additional Findings Additional findings: - Constitutional Appears: No Acute Distress - Head Exam Head Exam: ATRAUMATIC, NORMAL INSPECTION, NORMOCEPHALIC - Eye Exam Eye Exam: EOMI, Normal appearance. Pupil Exam: NORMAL ACCOMODATION - ENT Exam ENT Exam: Mucous Membranes Moist, Normal External Ear Exam. absent: Mucous Membranes Dry - Neck Exam Neck exam: Positive for: Full Rom, Normal Inspection. Negative for: Meningi smus, Tenderness - Respiratory Exam Respiratory Exam: Rhonchi, Wheezes (improved, diffuse throughout lung marquis), NORMAL BREATHING PATTERN. absent: Accessory Muscle Use, Chest Wall Tenderness, Decreased Breath Sounds, Respiratory Distress - Cardiovascular Exam Cardiovascular Exam: REGULAR RHYTHM, Regular rate, +S1, +S2. absent: Tachycardia, Bradycardia, Diastolic murmur, Systolic Murmur - GI/Abdominal Exam GI & Abdominal Exam: Normal Bowel Sounds, Soft. absent: Diminished Bowel Sounds, Distended, Firm, Guarding, Mass, Tenderness - Extremities Exam Extremities exam: Positive for: normal inspection. Negative for: calf tenderness, pedal edema, tenderness - Neurological Exam Neurological exam: Alert, CN II-XII Intact, Oriented x3 - Psychiatric Exam Psychiatric exam: Normal Affect, Normal Mood Additional comments: no anxiety, agitation, depression - Skin Skin Exam: Dry, Intact, Normal Color, Warm Assessment and Plan - Assessment and Plan (Free Text) Assessment: - acute asthma most likely secondary to URI - HTN Plan: Labs and imaging reviewed. CXR was negative. Patient was negative for flu, influenza type A,B negative. Less likely PNA due to negative cxr. Pulmonary was consulted. Patient will continue on Duonebs q6 scheduled and q2 prn as well as pulmicort. solu medrol was decreased to 30 q8. Elevated WBC count most likely due to steroid use. Patient will continue levofloxacin. Will continue home medications for HTN, norvasc. Will start mirilax fo constipation case reviewed and discussed with Dr. Oconnor <Quan Oconnor - Last Filed: 02/13/18 17:58> Objective - Vital Signs/Intake and Output Vital Signs (last 24 hours): Temp Pulse Resp BP Pulse Ox 97.7 F 104 H 20 112/62 99 10/16/18 14:00 02/13/18 14:00 02/13/18 14:00 02/13/18 14:00 02/13/18 14:00 Intake and Output: 02/13/18 02/13/18 06:59 18:59 Intake Total 120 840 Balance 120 840 - Medications Medications: Current Medications Acetaminophen (Tylenol 325mg Tab) 650 mg PO Q4H PRN PRN Reason: Fever >100.5 F Albuterol/Ipratropium (Duoneb 3 Mg/0.5 Mg (3 Ml) Ud) 3 ml IH Q2BPLES [facility] Last Admin: 02/13/18 12:50 Dose: 3 ml Albuterol/Ipratropium (Duoneb 3 Mg/0.5 Mg (3 Ml) Ud) 3 ml IH Q2H PRN PRN Reason: Shortness of Breath Amlodipine Besylate (Norvasc) 10 mg PO DAILY [facility] Last Admin: 02/13/18 09:36 Dose: 10 mg Budesonide (Pulmicort Respules) 0.5 mg IH [id number] [facility] Last Admin: 02/13/18 07:25 Dose: 0.5 mg Levofloxacin (Levaquin) 500 mg PO DAILY [facility]; Protocol Last Admin: 02/13/18 09:36 Dose: 500 mg Methylprednisolone (Solu-Medrol) 30 mg IVP Q8 [facility] Last Admin: 02/13/18 13:16 Dose: 30 mg Polyethylene Glycol (Miralax) 17 gm PO BID [facility] Last Admin: 02/13/18 17:24 Dose: Not Given - Labs Labs: 02/13/18 06:45 02/13/18 06:45 PT 11.4 SECONDS (9.4-12.5) 02/11/18 19:51 INR 1.00 02/11/18 19:51 APTT 29.5 Seconds (25.1-36.5) 02/11/18 19:51 Assessment and Plan - Assessment and Plan (Free Text) Assessment: Pt seen and examined. I have reviewed the note of the manager medical affairs and agree with it. I have discussed the assessment and plan with the resident. I have reviewed the patient's labs and medications. Pt with acute Asthma. She is on steroids and duoneb. She does not have pneumonia. She feels that her breathing better. Pt will continue with Levaquin. BP is controlled with Norvasc.
--- NOTE | 2018-02-13 20:35 | CP.PCM.PN ---
<David Agudelo - Last Filed: 02/13/18 20:33> Subjective - Date & Time of Evaluation Date of Evaluation: 02/13/18 Time of Evaluation: 20:33 - Subjective Subjective: INTERNAL MEDICINE PROGRESS NOTE Pt complained of chest pain with radiation to the jaw while receiving duoneb treatment. Blood pressure was elevated to 160/100s with HR 120s. EKG/Troponins were ordered stat. Upon interview, chest pain had resolved and patient was no longer in distress. Hydralazine administered Objective - Vital Signs/Intake and Output Vital Signs (last 24 hours): Temp Pulse Resp BP Pulse Ox 97.7 F 104 H 20 112/62 99 02/13/18 14:00 02/13/18 14:00 02/13/18 14:00 02/13/18 14:00 02/13/18 14:00 Intake and Output: 02/13/18 02/14/18 18:59 06:59 Intake Total 840 540 Balance 840 540 - Medications Medications: Current Medications Acetaminophen (Tylenol 325mg Tab) 650 mg PO Q4H PRN PRN Reason: Fever >100.5 F Albuterol/Ipratropium (Duoneb 3 Mg/0.5 Mg (3 Ml) Ud) 3 ml IH [id number] [facility] Last Admin: 02/13/18 12:50 Dose: 3 ml Albuterol/Ipratropium (Duoneb 3 Mg/0.5 Mg (3 Ml) Ud) 3 ml IH Q2H PRN PRN Reason: Shortness of Breath Amlodipine Besylate (Norvasc) 10 mg PO DAILY [facility] Last Admin: 02/13/18 09:36 Dose: 10 mg Budesonide (Pulmicort Respules) 0.5 mg IH [id number] [facility] Last Admin: 02/13/18 07:25 Dose: 0.5 mg Levofloxacin (Levaquin) 500 mg PO DAILY [facility]; Protocol Last Admin: 02/13/18 09:36 Dose: 500 mg Methylprednisolone (Solu-Medrol) 30 mg IVP Q8 [facility] Last Admin: 02/13/18 13:16 Dose: 30 mg Polyethylene Glycol (Miralax) 17 gm PO BID [facility] Last Admin: 02/13/18 17:24 Dose: Not Given - Labs Labs: 02/13/18 06:45 02/13/18 06:45 PT 11.4 SECONDS (9.4-12.5) 02/11/18 19:51 INR 1.00 02/11/18 19:51 APTT 29.5 Seconds (25.1-36.5) 02/11/18 19:51 <Arlene Butcher - Last Filed: 02/14/18 03:43> Objective - Vital Signs/Intake and Output Vital Signs (last 24 hours): Temp Pulse Resp BP Pulse Ox 97.9 F 110 H 20 140/74 98 02/13/18 23:24 02/13/18 23:24 02/13/18 23:24 02/13/18 23:24 02/13/18 23:24 Intake and Output: 02/13/18 02/14/18 18:59 06:59 Intake Total 840 540 Balance 840 540 - Medications Medications: Current Medications Acetaminophen (Tylenol 325mg Tab) 650 mg PO Q4H PRN PRN Reason: Fever >100.5 F Albuterol/Ipratropium (Duoneb 3 Mg/0.5 Mg (3 Ml) Ud) 3 ml IH [id number] [facility] Last Admin: 02/13/18 20:16 Dose: 3 ml Albuterol/Ipratropium (Duoneb 3 Mg/0.5 Mg (3 Ml) Ud) 3 ml IH Q2H PRN PRN Reason: Shortness of Breath Amlodipine Besylate (Norvasc) 10 mg PO DAILY [facility] Last Admin: 02/13/18 09:36 Dose: 10 mg Budesonide (Pulmicort Respules) 0.5 mg IH [id number] [facility] Last Admin: 02/13/18 20:20 Dose: 0.5 mg Levofloxacin (Levaquin) 500 mg PO DAILY [facility]; Protocol Last Admin: 02/13/18 09:36 Dose: 500 mg Methylprednisolone (Solu-Medrol) 30 mg IVP Q8 [facility] Last Admin: 02/13/18 23:48 Dose: 30 mg Polyethylene Glycol (Miralax) 17 gm PO BID [facility] Last Admin: 02/13/18 17:24 Dose: Not Given - Labs Labs: 02/13/18 06:45 02/13/18 06:45 PT 11.4 SECONDS (9.4-12.5) 02/11/18 19:51 INR 1.00 02/11/18 19:51 APTT 29.5 Seconds (25.1-36.5) 02/11/18 19:51 Attending/Attestation - Attestation I have personally seen and examined this patient.: Yes I have fully participated in the care of the patient.: Yes I have reviewed all pertinent clinical information, including history, physical exam and plan: Yes Notes (Text): 02/14/18 03:25 Pt seen.states her chest pain has resolved. O/E Lungs:occasional scattered wheezes Cor:S1S2 regular EKG reviewed ,shows s tach @105/min.No acute or ischemic changes noted,
[2018-02-14] MEDS: Albuterol-Ipratrop 3 mg / 0.5 (3 ml) UD IH SCH ×4 (01:47→19:32)
[2018-02-14] MEDS: MethylPREDNISolone 40 mg Vial IVP SCH ×3 (06:25→21:22)
[2018-02-14 07:02] LABS: GRAN # 17.26 (1.4-6.5); GRAN % 91.7 % (50.0-68.0); HEMOGLOBIN 10.4 g/dL (12.0-16.0); LYMPH % 5.2 % (22.0-35.0); MEAN CELL VOLUME 67.3 fl (80.0-105.0); MEAN CORPUSCULAR HEMOGLOBIN 21.1 pg (25.0-35.0); MEAN CORPUSCULAR HGB CONC 31.3 g/dl (31.0-37.0); MEAN PLATELET VOLUME 9.7 fl (7.0-11.0); MONO # 0.6 (0.1-0.6); MONO % 3.1 % (1.0-6.0); PLATELET COUNT 318 10^3/uL (120.0-450.0); RBC 4.93 10^6/uL (3.5-6.1); RED CELL DISTRIBUTION WIDTH 17.5 % (11.5-14.5); WHITE BLOOD COUNT 18.8 10^3/ul (4.5-11.0)
[2018-02-14] MEDS: Budesonide 0.5 mg/2 ml Inhal Susp UD IH SCH ×2 (07:39→19:35)
--- NOTE | 2018-02-14 07:39 | CP.PCM.PN ---
<Adelita Maxwell - Last Filed: 02/14/18 12:27> Subjective - Date & Time of Evaluation Date of Evaluation: 02/14/18 Time of Evaluation: 07:00 - Subjective Subjective: PGY-3 Medicine progress note for Dr. Oconnor's service Patient seen and examined at bedside. No acute distress. Patient states that her breathing and cough has improved. She reports chets pain during her breathing treatment overnight. She state that she had chest tightness and tachycardia. This AM pain and tachycardia has resolved. She denies chest pain, abd pain, headache, dizziness. Objective - Vital Signs/Intake and Output Vital Signs (last 24 hours): Temp Pulse Resp BP Pulse Ox 97.9 F 110 H 20 140/74 98 02/13/18 23:24 02/13/18 23:24 02/14/18 07:13 02/13/18 23:24 02/13/18 23:24 Intake and Output: 02/14/18 02/14/18 06:59 18:59 Intake Total 540 Balance 540 - Medications Medications: Current Medications Acetaminophen (Tylenol 325mg Tab) 650 mg PO Q4H PRN PRN Reason: Fever >100.5 F Albuterol/Ipratropium (Duoneb 3 Mg/0.5 Mg (3 Ml) Ud) 3 ml IH [id number] [facility] Last Admin: 02/14/18 01:47 Dose: Not Given Albuterol/Ipratropium (Duoneb 3 Mg/0.5 Mg (3 Ml) Ud) 3 ml IH Q2H PRN PRN Reason: Shortness of Breath Amlodipine Besylate (Norvasc) 10 mg PO DAILY [facility] Last Admin: 02/13/18 09:36 Dose: 10 mg Budesonide (Pulmicort Respules) 0.5 mg IH [id number] [facility] Last Admin: 02/13/18 20:20 Dose: 0.5 mg Levofloxacin (Levaquin) 500 mg PO DAILY [facility]; Protocol Last Admin: 02/13/18 09:36 Dose: 500 mg Methylprednisolone (Solu-Medrol) 30 mg IVP Q12 [facility] Polyethylene Glycol (Miralax) 17 gm PO BID [facility] Last Admin: 02/13/18 17:24 Dose: Not Given - Labs Labs: 02/14/18 06:20 02/13/18 06:45 PT 11.4 SECONDS (9.4-12.5) 02/11/18 19:51 INR 1.00 02/11/18 19:51 APTT 29.5 Seconds (25.1-36.5) 02/11/18 19:51 - Additional Findings Additional findings: - Constitutional Appears: No Acute Distress - Head Exam Head Exam: ATRAUMATIC, NORMAL INSPECTION, NORMOCEPHALIC - Eye Exam Eye Exam: EOMI, Normal appearance. - ENT Exam ENT Exam: Mucous Membranes Moist, Normal External Ear Exam. absent: Mucous Membranes Dry - Neck Exam Neck exam: Positive for: Full Rom, Normal Inspection. Negative for: Meningismus, Tenderness - Respiratory Exam Respiratory Exam: Rhonchi, Wheezes (diffuse throughout lung marquis), NORMAL BREATHING PATTERN. absent: Accessory Muscle Use, Chest Wall Tenderness, Decreased Breath Sounds, Respiratory Distress - Cardiovascular Exam Cardiovascular Exam: REGULAR RHYTHM, Tachycardia, +S1, +S2. absent: Bradycardia, Diastolic murmur, Systolic Murmur - GI/Abdominal Exam GI & Abdominal Exam: Normal Bowel Sounds, Soft. absent: Diminished Bowel Sounds, Distended, Firm, Guarding, Mass, Tenderness - Extremities Exam Extremities exam: Positive for: normal inspection. Negative for: calf tenderness, pedal edema, tenderness - Neurological Exam Neurological exam: Alert, CN II-XII Intact, Oriented x3 - Psychiatric Exam Psychiatric exam: Normal Affect, Normal Mood Additional comments: no anxiety, agitation, depression - Skin Skin Exam: Dry, Intact, Normal Color, Warm Assessment and Plan - Assessment and Plan (Free Text) Assessment: - acute asthma most likely secondary to URI - HTN - constipation Plan: Labs and imaging reviewed. Patient will continue on Duonebs q6 scheduled and q2 prn as well as pulmicort. solu medrol was decreased to 30 q8. Patient had episode of chest tightness and tachycardiac during breathing treatment, most likely due to anxiety. Trops were negative x3 and EKG was sinus tahcycardia, no ST changes making it unlikely that the chest tightness was cardiac. Patient was negative for flu, influenza type A,B negative. Less likely PNA due to negative cxr. Pulmonary was consulted. Elevated WBC count most likely due to steroid use. Patient will continue levofloxacin. Will continue home medications for HTN, norvasc. continue mirilax for constipation case reviewed and discussed with Dr. Oconnor <Quan Oconnor S - Last Filed: 02/14/18 20:57> Objective - Vital Signs/Intake and Output Vital Signs (last 24 hours): Temp Pulse Resp BP Pulse Ox 97.4 F L 98 H 20 120/66 99 02/14/18 14:00 02/14/18 14:00 02/14/18 14:00 02/14/18 14:00 02/14/18 14:00 Intake and Output: 02/14/18 02/15/18 18:59 06:59 Intake Total 720 480 Balance 720 480 - Medications Medications: Current Medications Acetaminophen (Tylenol 325mg Tab) 650 mg PO Q4H PRN PRN Reason: Fever >100.5 F Albuterol/Ipratropium (Duoneb 3 Mg/0.5 Mg (3 Ml) Ud) 3 ml IH [id number] [facility] Last Admin: 02/14/18 19:32 Dose: 3 ml Albuterol/Ipratropium (Duoneb 3 Mg/0.5 Mg (3 Ml) Ud) 3 ml IH Q2H PRN PRN Reason: Shortness of Breath Amlodipine Besylate (Norvasc) 10 mg PO DAILY [facility] Last Admin: 02/14/18 11:09 Dose: 10 mg Budesonide (Pulmicort Respules) 0.5 mg IH [id number] [facility] Last Admin: 02/14/18 19:35 Dose: 0.5 mg Levofloxacin (Levaquin) 500 mg PO DAILY [facility]; Protocol Last Admin: 02/14/18 11:09 Dose: 500 mg Methylprednisolone (Solu-Medrol) 30 mg IVP Q12 [facility] Last Admin: 02/14/18 11:12 Dose: 30 mg Polyethylene Glycol (Miralax) 17 gm PO BID [facility] Last Admin: 02/14/18 17:18 Dose: 17 gm - Labs Labs: 02/14/18 06:20 02/13/18 06:45 PT 11.4 SECONDS (9.4-12.5) 02/11/18 19:51 INR 1.00 02/11/18 19:51 APTT 29.5 Seconds (25.1-36.5) 02/11/18 19:51 Assessment and Plan - Assessment and Plan (Free Text) Assessment: Pt seen and examined. I have reviewed the note of the mobile paramedical examiner and agree with it. I have discussed the assessment and plan with the resident. I have reviewed the patient's labs and medications. Pt with acute Asthma. She is improving on Duonebs and Solumedrol. She is being followed by pulmonary. High WCC most likely due ot steroids. HTN is being treated with Norvasc. No pain. Eating ok.
--- NOTE | 2018-02-14 07:43 | PN ---
DATE: 02/14/2018 PULMONARY NOTE SUBJECTIVE: The patient appears very comfortable this morning. She is not short of breath at rest. PHYSICAL EXAMINATION: VITAL SIGNS: Last temperature recorded is 97.9, pulse this morning is approximately 80, respiratory rate 18-20, blood pressure 140/74. Oxygen saturation on nasal cannula is 100%. HEENT: Normocephalic, atraumatic. No JVD. CARDIOVASCULAR: Systolic ejection murmur at the lower left sternal border. No S3 gallop. LUNGS: Continued decreased rhonchi and wheezing bilaterally. EXTREMITIES: Mild edema. No cyanosis, no clubbing. Calves are nontender to palpation. GASTROINTESTINAL: Abdomen is soft, nontender, and nondistended. Bowel sounds are positive. SKIN: No acute rash. NEUROLOGIC: Limited at the present time. IMPRESSION: 1. Acute bronchitis. 2. Asthma. 3. Mild anemia. 4. Hypertension. PLAN: The patient appears very comfortable this morning. She is not short of breath at rest. She does state to feeling much better overall. I did discuss the case with the night nurse at length. Apparently, while getting a nebulizer treatment last night, the patient did experience a very short isolated episode of chest discomfort. EKG was done and troponins were also drawn. Workup is so far negative for acute ischemia. Again, this was a short isolated episode. On physical exam, her bronchospasm continues to resolve. In addition, the oxygen saturation on nasal cannula is now 100%. I will continue with the current nebulizer treatments and decrease the intravenous steroids this morning. The patient also remains on antibiotic therapy. There are no temperatures noted. There is a leukocytosis noted - probably secondary to the steroids. Repeat a.m. labs are ordered. Clinical status of the patient is definitely improved - compared to the initial presentation. I will discuss the above with Dr. Oconnor. Lion Patel MD MTDD
[2018-02-14 08:20] LABS: LYMPHOCYTE 8 % (22.0-35.0); MONOCYTE 3 % (1.0-6.0); NEUTROPHIL 89 % (50.0-70.0); PLATELET ESTIMATE NORMAL (NORMAL)
[2018-02-14] MEDS: levoFLOXacin 500 MG TAB PO SCH (11:09)
[2018-02-14] MEDS: POLYETHYLENE GLYCOL 3350 17 GM/Dose PACKET PO SCH ×2 (11:13→17:18)
--- NOTE | 2018-02-14 11:45 | CARD ---
APPROVED REPORT Date of service: 02/13/2018 EKG Measurement Heart [id number] <Conclusion> Sinus tachycardia Otherwise normal ECG
[2018-02-14 22:46] VITALS: O2SAT 96
[2018-02-15] MEDS: Albuterol-Ipratrop 3 mg / 0.5 (3 ml) UD IH SCH ×3 (01:12→13:10)
[2018-02-15] MEDS: Budesonide 0.5 mg/2 ml Inhal Susp UD IH SCH (07:29)
--- NOTE | 2018-02-15 07:48 | PN ---
DATE: 02/15/2018 SUBJECTIVE: The patient appears comfortable this morning. She is not short of breath at rest. PHYSICAL EXAMINATION: VITAL SIGNS: (Last noted in the computer): The temperature is 98.8, pulse 97, respirations 18, blood pressure 144/76. Oxygen saturation on nasal cannula is 96-100%. HEENT: Normocephalic, atraumatic. No JVD. CARDIOVASCULAR: Systolic ejection murmur at the lower left sternal border. No S3 gallop. LUNGS: Still with mild rhonchi and few wheezes bilaterally. EXTREMITIES: Mild edema. No cyanosis, no clubbing. Calves are nontender to palpation. GI: Abdomen is soft, nontender and nondistended. Bowel sounds are positive. SKIN: No acute rash. NEUROLOGIC: Limited at the present time. IMPRESSION: 1. Acute bronchitis. 2. Asthma. 3. Mild anemia. 4. Hypertension. PLAN: The patient appears comfortable this morning. She is not short of breath at rest. She does state to feeling much better overall. I did discuss the case with the night nurse at length. The night nurse stated that the patient had a very good night. On physical exam, the patient remains in mild bronchospasm. However, there is no significant alveolar-arterial gradient. I will continue the current nebulizer treatments and low-dose intravenous steroids (decreased yesterday) for now. The patient also remains on oral antibiotic therapy. There are no temperatures noted. Cultures remain negative so far. Clinical status of the patient is significantly improved - compared to the initial presentation. Hopefully, we can change to oral therapy in the morning. I will discuss the above with Dr. Oconnor. Lion Patel MD GERI
[2018-02-15 08:16] VITALS: PULSE 87; RESP 20; TEMP 98
--- NOTE | 2018-02-15 09:35 | CP.PCM.DIS ---
<Adelita Maxwell - Last Filed: 02/15/18 13:46> Provider - Provider Date of Admission: 02/12/18 09:23 Attending physician: Quan Oconnor MD Primary care physician: Ana M Almendarez MD Time Spent in preparation of Discharge (in minutes): 45 Hospital Course - Lab Results Lab Results: Micro Results 02/11/18 19:51 Blood-Venous Blood Culture - Preliminary NO GROWTH AFTER 3 DAYS 02/11/18 19:35 Blood-Venous Blood Culture - Preliminary NO GROWTH AFTER 3 DAYS Most Recent Lab Values WBC 18.8 10^3/ul (4.5-11.0) H 02/14/18 06:20 RBC 4.93 10^6/uL (3.5-6.1) 02/14/18 06:20 Hgb 10.4 g/dL (12.0-16.0) L 02/14/18 06:20 Hct 33.2 % (36.0-48.0) L 02/14/18 06:20 MCV 67.3 fl (80.0-105.0) L 02/14/18 06:20 MCH 21.1 pg (25.0-35.0) L 02/14/18 06:20 MCHC 31.3 g/dl (31.0-37.0) 02/14/18 06:20 RDW 17.5 % (11.5-14.5) H 02/14/18 06:20 Plt Count 318 10^3/uL (120.0-450.0) 02/14/18 06:20 MPV 9.7 fl (7.0-11.0) 02/14/18 06:20 Gran % 91.7 % (50.0-68.0) H 02/14/18 06:20 Lymph % (Auto) 5.2 % (22.0-35.0) L 02/14/18 06:20 Cotton % (Auto) 3.1 % (1.0-6.0) 02/14/18 06:20 Eos % (Auto) 0.0 % (1.5-5.0) L 02/14/18 06:20 Baso % (Auto) 0.0 % (0.0-3.0) 02/14/18 06:20 Gran # 17.26 (1.4-6.5) H 02/14/18 06:20 Lymph # (Auto) 1.0 (1.2-3.4) L 02/14/18 06:20 Cotton # (Auto) 0.6 (0.1-0.6) 02/14/18 06:20 Eos # (Auto) 0.0 (0.0-0.7) 02/14/18 06:20 Baso # (Auto) 0.00 K/mm3 (0.0-2.0) 02/14/18 06:20 Neutrophils % (Manual) 89 % (50.0-70.0) H 02/14/18 06:20 Lymphocytes % (Manual) 8 % (22.0-35.0) L 02/14/18 06:20 Monocytes % (Manual) 3 % (1.0-6.0) 02/14/18 06:20 Platelet Evaluation Normal (NORMAL) 02/14/18 06:20 PT 11.4 SECONDS (9.4-12.5) 02/11/18 19:51 INR 1.00 02/11/18 19:51 APTT 29.5 Seconds (25.1-36.5) 02/11/18 19:51 pO2 82 mm/Hg (30-55) H 02/11/18 23:26 VBG pH 7.34 (7.32-7.43) 02/11/18 23:26 VBG pCO2 48.0 (40-60) 02/11/18 23:26 VBG HCO3 25.9 mmol/l (21-28) 02/11/18 23:26 VBG Total CO2 27.4 mmol.L (22-28) 02/11/18 23:26 VBG O2 Sat (Calc) 98.1 % (40-65) H 02/11/18 23:26 VBG Base Excess -0.4 mmol/L (0.0-2.0) L 02/11/18 23:26 VBG Potassium 3.7 mmol/L (3.6-5.2) 02/11/18 23:26 Sodium 136.0 mmol/L (132-148) 02/11/18 23:26 Chloride 105.0 mmol/L (98-107) 02/11/18 23:26 Glucose 171 mg/dl (65-105) H 02/11/18 23:26 Lactate 2.1 mmol/L (0.7-2.1) 02/11/18 23:26 FiO2 21.0 % 02/11/18 23:26 Sodium 140 mmol/L (132-148) 02/13/18 06:45 Potassium 4.7 mmol/L (3.6-5.0) 02/13/18 06:45 Chloride 106 mmol/L (98-107) 02/13/18 06:45 Carbon Dioxide 24 mmol/L (21-33) 02/13/18 06:45 Anion Gap 14 (10-20) 02/13/18 06:45 BUN 15 mg/dL (7-21) 02/13/18 06:45 Creatinine 0.7 mg/dl (0.7-1.2) 02/13/18 06:45 Est GFR ( Amer) > 60 02/13/18 06:45 Est GFR (Non-Af Amer) > 60 02/13/18 06:45 POC Glucose (mg/dL) 315 mg/dL (65-110) H 02/13/18 20:09 Random Glucose 171 mg/dL (70-110) H 02/13/18 06:45 Calcium 9.7 mg/dL (8.4-10.5) 02/13/18 06:45 Magnesium 1.8 mg/dL (1.7-2.2) 02/11/18 20:17 Total Bilirubin 0.3 mg/dL (0.2-1.3) 02/11/18 20:17 AST 21 U/L (14-36) 02/11/18 20:17 ALT 27 U/L (7-56) 02/11/18 20:17 Alkaline Phosphatase 88 U/L (38-126) 02/11/18 20:17 Lactate Dehydrogenase 409 U/L (333-699) 02/11/18 20:17 Total Creatine Kinase 120 U/L (35-230) 02/11/18 20:17 Troponin I < 0.01 ng/mL 02/14/18 08:00 NT-Pro-B Natriuret Pep 61.8 pg/mL (0-450) 02/11/18 20:17 Total Protein 6.9 g/dL (5.8-8.3) 02/11/18 20:17 Albumin 3.8 g/dL (3.0-4.8) 02/11/18 20:17 Globulin 3.0 gm/dL 02/11/18 20:17 Albumin/Globulin Ratio 1.3 (1.1-1.8) 02/11/18 20:17 Venous Blood Potassium 3.7 mmol/L (3.6-5.2) 02/11/18 23:26 Influenza Typ A,B (EIA) Negative for flu a/b (NEGATIVE) 02/11/18 22:00 - Hospital Course Hospital Course: 72 year old female with PMH of hypertension, asthma, and uterine fibroids s/p hysterectomy, who presented with complaint of shortness of breath for the past couple of days with cough. She states that she was using her nebulizer treatment at home multiple times per day but continued to have SOB with wheezing and her symptoms worsened. Patient was treated for acute asthma. She recieved breathing treatments, steriods and antibiotics. During hospital course she had episode of chest tightness and tachycardiac during breathing treatment, most likely due to anxiety. Trops were negative x3 and EKG was reviewed and showed sinus tahcycardia, no ST changes. Patient was negative for flu, influenza type A,B negative. PNA was unlikley due to negative cxr. Pulmonary was consulted. Home HTN medications were continued, BP monitored.Patient was discharged on steriod taper and antibiotics. Discharge plan and instructions were discussed with patient, all questions answered. Discharge Exam - Additional Findings Additional findings: - Constitutional Appears: No Acute Distress - Head Exam Head Exam: ATRAUMATIC, NORMAL INSPECTION, NORMOCEPHALIC - Eye Exam Eye Exam: EOMI, Normal appearance. - ENT Exam ENT Exam: Mucous Membranes Moist, Normal External Ear Exam. absent: Mucous Membranes Dry - Neck Exam Neck exam: Positive for: Full Rom, Normal Inspection. Negative for: Meningismus, Tenderness - Respiratory Exam Respiratory Exam: Rhonchi, Wheezes (diffuse throughout lung marquis), NORMAL BREATHING PATTERN. absent: Accessory Muscle Use, Chest Wall Tenderness, Decreased Breath Sounds, Respiratory Distress - Cardiovascular Exam Cardiovascular Exam: REGULAR RHYTHM, Tachycardia, +S1, +S2. absent: Bradycardia, Diastolic murmur, Systolic Murmur - GI/Abdominal Exam GI & Abdominal Exam: Normal Bowel Sounds, Soft. absent: Diminished Bowel Sounds, Distended, Firm, Guarding, Mass, Tenderness - Extremities Exam Extremities exam: Positive for: normal inspection. Negative for: calf tenderness, pedal edema, tenderness - Neurological Exam Neurological exam: Alert, CN II-XII Intact, Oriented x3 - Psychiatric Exam Psychiatric exam: Normal Affect, Normal Mood Additional comments: no anxiety, agitation, depression - Skin Skin Exam: Dry, Intact, Normal Color, Warm Discharge Plan - Discharge Medications Prescriptions: RX: Prednisone [Deltasone] 20 mg PO ASDIR #18 tablet levoFLOXacin [Levaquin] 500 mg PO DAILY #4 tab - Follow Up Plan Condition: FAIR Disposition: HOME/ ROUTINE Instructions: Avoiding Asthma Triggers, Asthma (DC) Additional Instructions: Follow up with PMD Dr. Almendarez in 1 week Take predinsone as directed for the first 3 day take 60mg daily( 3tablets) then take 40mg (2tablets) for the following 3 days then take 20mg (1 tablet) for the last 3days take antibiotic levaquin daily Referrals: Ana M Almendarez MD [Primary Care Provider] - <Quan Oconnor - Last Filed: 02/15/18 16:14> Provider - Provider Date of Admission: 02/12/18 09:23 Attending physician: Quan Oconnor MD Primary care physician: Ana M Almendarez MD Hospital Course - Lab Results Lab Results: Micro Results 02/11/18 19:51 Blood-Venous Blood Culture - Preliminary NO GROWTH AFTER 3 DAYS 02/11/18 19:35 Blood-Venous Blood Culture - Preliminary NO GROWTH AFTER 3 DAYS Most Recent Lab Values WBC 18.8 10^3/ul (4.5-11.0) H 02/14/18 06:20 RBC 4.93 10^6/uL (3.5-6.1) 02/14/18 06:20 Hgb 10.4 g/dL (12.0-16.0) L 02/14/18 06:20 Hct 33.2 % (36.0-48.0) L 02/14/18 06:20 MCV 67.3 fl (80.0-105.0) L 02/14/18 06:20 MCH 21.1 pg (25.0-35.0) L 02/14/18 06:20 MCHC 31.3 g/dl (31.0-37.0) 02/14/18 06:20 RDW 17.5 % (11.5-14.5) H 02/14/18 06:20 Plt Count 318 10^3/uL (120.0-450.0) 02/14/18 06:20 MPV 9.7 fl (7.0-11.0) 02/14/18 06:20 Gran % 91.7 % (50.0-68.0) H 02/14/18 06:20 Lymph % (Auto) 5.2 % (22.0-35.0) L 02/14/18 06:20 Cotton % (Auto) 3.1 % (1.0-6.0) 02/14/18 06:20 Eos % (Auto) 0.0 % (1.5-5.0) L 02/14/18 06:20 Baso % (Auto) 0.0 % (0.0-3.0) 02/14/18 06:20 Gran # 17.26 (1.4-6.5) H 02/14/18 06:20 Lymph # (Auto) 1.0 (1.2-3.4) L 02/14/18 06:20 Cotton # (Auto) 0.6 (0.1-0.6) 02/14/18 06:20 Eos # (Auto) 0.0 (0.0-0.7) 02/14/18 06:20 Baso # (Auto) 0.00 K/mm3 (0.0-2.0) 02/14/18 06:20 Neutrophils % (Manual) 89 % (50.0-70.0) H 02/14/18 06:20 Lymphocytes % (Manual) 8 % (22.0-35.0) L 02/14/18 06:20 Monocytes % (Manual) 3 % (1.0-6.0) 02/14/18 06:20 Platelet Evaluation Normal (NORMAL) 02/14/18 06:20 PT 11.4 SECONDS (9.4-12.5) 02/11/18 19:51 INR 1.00 02/11/18 19:51 APTT 29.5 Seconds (25.1-36.5) 02/11/18 19:51 pO2 82 mm/Hg (30-55) H 02/11/18 23:26 VBG pH 7.34 (7.32-7.43) 02/11/18 23:26 VBG pCO2 48.0 (40-60) 02/11/18 23:26 VBG HCO3 25.9 mmol/l (21-28) 02/11/18 23:26 VBG Total CO2 27.4 mmol.L (22-28) 02/11/18 23:26 VBG O2 Sat (Calc) 98.1 % (40-65) H 02/11/18 23:26 VBG Base Excess -0.4 mmol/L (0.0-2.0) L 02/11/18 23:26 VBG Potassium 3.7 mmol/L (3.6-5.2) 02/11/18 23:26 Sodium 136.0 mmol/L (132-148) 02/11/18 23:26 Chloride 105.0 mmol/L (98-107) 02/11/18 23:26 Glucose 171 mg/dl (65-105) H 02/11/18 23:26 Lactate 2.1 mmol/L (0.7-2.1) 02/11/18 23:26 FiO2 21.0 % 02/11/18 23:26 Sodium 140 mmol/L (132-148) 02/13/18 06:45 Potassium 4.7 mmol/L (3.6-5.0) 02/13/18 06:45 Chloride 106 mmol/L (98-107) 02/13/18 06:45 Carbon Dioxide 24 mmol/L (21-33) 02/13/18 06:45 Anion Gap 14 (10-20) 02/13/18 06:45 BUN 15 mg/dL (7-21) 02/13/18 06:45 Creatinine 0.7 mg/dl (0.7-1.2) 02/13/18 06:45 Est GFR ( Amer) > 60 02/13/18 06:45 Est GFR (Non-Af Amer) > 60 02/13/18 06:45 POC Glucose (mg/dL) 315 mg/dL (65-110) H 02/13/18 20:09 Random Glucose 171 mg/dL (70-110) H 02/13/18 06:45 Calcium 9.7 mg/dL (8.4-10.5) 02/13/18 06:45 Magnesium 1.8 mg/dL (1.7-2.2) 02/11/18 20:17 Total Bilirubin 0.3 mg/dL (0.2-1.3) 02/11/18 20:17 AST 21 U/L (14-36) 02/11/18 20:17 ALT 27 U/L (7-56) 02/11/18 20:17 Alkaline Phosphatase 88 U/L (38-126) 02/11/18 20:17 Lactate Dehydrogenase 409 U/L (333-699) 02/11/18 20:17 Total Creatine Kinase 120 U/L (35-230) 02/11/18 20:17 Troponin I < 0.01 ng/mL 02/14/18 08:00 NT-Pro-B Natriuret Pep 61.8 pg/mL (0-450) 02/11/18 20:17 Total Protein 6.9 g/dL (5.8-8.3) 02/11/18 20:17 Albumin 3.8 g/dL (3.0-4.8) 02/11/18 20:17 Globulin 3.0 gm/dL 02/11/18 20:17 Albumin/Globulin Ratio 1.3 (1.1-1.8) 02/11/18 20:17 Venous Blood Potassium 3.7 mmol/L (3.6-5.2) 02/11/18 23:26 Influenza Typ A,B (EIA) Negative for flu a/b (NEGATIVE) 02/11/18 22:00 - Hospital Course Hospital Course: Pt seen and examined. I have reviewed the note of the medical staff physician and agree with it. I have discussed the assessment and plan with the resident. I have reviewed the patient's labs and medications. Pt with acute asthma that is improving. Pt on steriods and Duoneb treatments. She does have mild wheezing but she usually takes much more time to improve from my previous experience. She is being followed by Pulmonary. She will be discharged home and will f/u with PMD.
[2018-02-15] MEDS: MethylPREDNISolone 40 mg Vial IVP SCH (09:43)
[2018-02-15] MEDS: levoFLOXacin 500 MG TAB PO SCH (09:43)
[2018-02-15] MEDS: POLYETHYLENE GLYCOL 3350 17 GM/Dose PACKET PO SCH (09:44)
[2018-02-15 09:45] VITALS: BP 124/64
== END 2018-02-15 14:26 | disposition home or self-care (01) | DRG 191 ==
LOC: ED 19:16 → ERH 22:57 → 2RNO 02-12 01:45 → OBSVTOIN 02-12 09:23 → 5RNO 02-12 14:06
PROVIDERS: ADMIT Internal Medicine Nephrology; ATTEND Internal Medicine Nephrology
PROC: 3E0F7GC Introduction of Other Therapeutic Substance into Respiratory Tract, Via Natural or Artificial Opening (ICD-10-PCS; principal; 2018-02-12)
DX: J44.0 Chronic obstructive pulmonary disease with (acute) lower respiratory infection (principal); J20.9 Acute bronchitis, unspecified; J45.901 Unspecified asthma with (acute) exacerbation; D64.9 Anemia, unspecified; I10 Essential (primary) hypertension; F41.9 Anxiety disorder, unspecified; K59.00 Constipation, unspecified; Z87.01 Personal history of pneumonia (recurrent); Z90.710 Acquired absence of both cervix and uterus; Z87.891 Personal history of nicotine dependence

== ENCOUNTER 2018-07-02 09:33 | Day surgery (SDC) | payer MEDICARE, BC ==
[2018-07-02 09:59] VITALS: O2SAT 98
[2018-07-02] MEDS ORDERED: Propofol 10 mg/ml Inj (20 ML) ONE ×2 (10:25→11:03)
[2018-07-02 11:33] VITALS: RESP 16
[2018-07-02 14:20] VITALS: BP 112/61; PULSE 83; TEMP 97.7
== END 2018-07-02 13:28 | disposition home or self-care (01) ==
LOC: ENDO 09:33
PROVIDERS: ATTEND Internal Medicine Gastroenterology
DX: Z12.11 Encounter for screening for malignant neoplasm of colon (principal); K57.30 Diverticulosis of large intestine without perforation or abscess without bleeding; K64.8 Other hemorrhoids; Z86.010 Personal history of colon polyps; I10 Essential (primary) hypertension; J45.909 Unspecified asthma, uncomplicated; M19.90 Unspecified osteoarthritis, unspecified site; Z90.710 Acquired absence of both cervix and uterus; Z98.49 Cataract extraction status, unspecified eye
CPT/HCPCS: 45378; J2001; J2704; J7040